=== PATIENT | male | born 1945 | race Caucasian/White ===

== ENCOUNTER 2022-04-26 17:58 | Inpatient (IN) | payer MEDICAID ==
[~2022-04-26] VITALS: Ht 165.1 cm; Wt 55.0 kg
[2022-04-26 18:55] LABS: BASOPHILS % 0.5 % (0.0-2.0); EOSINOPHILS % 3.6 % (0.0-5.0); HEMATOCRIT. 30.7 % (42.0-52.0); HEMOGLOBIN. 9.9 g/dL (14.0-18.0); LYMPHOCYTES % 19.8 % (20.0-50.0); MEAN CORPUSCULAR HEMOGLOBIN 26.8 pg (28.0-32.0); MEAN CORPUSCULAR VOLUME 82.9 fL (80.0-94.0); MONOCYTES % 11.6 % (2.0-8.0); NEUTROPHILS % 64.5 % (40.0-76.0); PLATELET 287 x1000/uL (130-400); RED BLOOD CELL COUNT 3.71 mill/uL (4.7-6.1)
[2022-04-26 19:00] LABS: BG BASE EXCESS 7.3 mmol/L (-2.0-2.0); BG CARBOXYHEMOGLOBIN 0.3 % (0.5-1.5); BG DEOXYHEMOGLOBIN 6.2 % (0.0-5.0); BG FRACTION INSPIRED OXYGEN 28; BG HCO3 ACT 33.3 mmol/L (22.0-26.0); BG METHEMOGLOBIN 0.2 % (0.0-1.5); BG OXYGEN SATURATION 93.8 % (92.0-98.5); BG OXYHEMOGLOBIN 93.3 % (94.0-97.0); BG PCO2 54.3 mmHg (35.0-45.0); BG PH 7.405 (7.350-7.450); BG PO2 71.9 mmHg (75.0-100.0); BG SAMPLE SITE RIGHT RADIAL; BG TOTAL HEMOGLOBIN 10.4 g/dL (12.0-18.0); BG VENT MODE NASAL CANNULA
[2022-04-26 19:07] LABS: CHLORIDE 101 mEq/L (98-107)
[2022-04-26] MEDS ORDERED: ALBUTEROL (0.083%) 2.5MG/3ML NEB HHN STA (20:21)
[2022-04-26] MEDS ORDERED: IPRATROPIUM BROMIDE (0.02%) 0.5MG/2.5ML NEB HHN STA (20:21)
[2022-04-26] MEDS ORDERED: METHYLPREDNISOLONE SOD SUCC 125 MG/2 ML VIAL IV STA (20:21)
[2022-04-26] MEDS ORDERED: LEVOFLOXACIN 750MG PREMIX 150 ML IV NR (21:00)
[2022-04-27] MEDS ORDERED: IPRATROPIUM/ALBUTEROL 0.5-3(2.5)MG/3ML NEB HHN PRN ×2 (00:15→13:45)
[2022-04-27] MEDS ORDERED: ZOLPIDEM TARTRATE 5MG TABLET PO PRN (00:15)
[2022-04-27] MEDS ORDERED: CLONIDINE 0.1MG TABLET PO PRN (00:15)
[2022-04-27] MEDS ORDERED: ONDANSETRON HCL 4MG/2ML INJ IV PRN (00:15)
[2022-04-27] MEDS ORDERED: ACETAMINOPHEN 325MG TABLET PO PRN (00:15)
[2022-04-27] MEDS ORDERED: MAGNESIUM/ALUMINUM HYDROXIDE/SIMETHICONE 30ML UDC PO PRN (00:15)
[2022-04-27] MEDS ORDERED: DIPHENHYDRAMINE 50MG/ML VIAL IV PRN (00:15)
[2022-04-27] MEDS ORDERED: GUAIFENESIN 200MG/10ML SUGAR FREE UDC PO PRN (00:15)
[2022-04-27] MEDS: PRIMIDONE 250 MG TABLET PO SCH ×2 (02:00→20:27)
[2022-04-27] MEDS: CARBAMAZEPINE 200MG TABLET PO SCH ×3 (02:00→20:27)
[2022-04-27] MEDS: ACETAMINOPHEN 325MG TABLET PO PRN ×3 (02:02→20:27)
[2022-04-27 02:42] VITALS: BP 107/55
[2022-04-27] MEDS ORDERED: SPIR50TA5 PO (03:53)
[2022-04-27] MEDS ORDERED: ASPI-986 PO (03:53)
[2022-04-27] MEDS ORDERED: SACU1TAB7 PO (03:53)
[2022-04-27] MEDS ORDERED: PANT20TA17 MT (03:53)
[2022-04-27] MEDS ORDERED: PRIM250T7 PO ×2 (03:53→21:03)
[2022-04-27] MEDS ORDERED: CARB200T6 MT (03:53)
[2022-04-27] MEDS ORDERED: MONT4TAB9 PO (03:53)
[2022-04-27] MEDS ORDERED: CLOP75TA33 PO (03:53)
[2022-04-27] MEDS ORDERED: PRED1TAB MT (03:53)
[2022-04-27] MEDS ORDERED: IPRATROPIUM/ALBUTEROL 0.5-3(2.5)MG/3ML NEB HHN SCH (06:00)
[2022-04-27] MEDS: SODIUM CHLORIDE 0.9% INJ 3ML FLUSH IVF SCH ×3 (06:16→22:49)
[2022-04-27] MEDS: METHYLPREDNISOLONE SOD SUCC 125 MG/2 ML VIAL IV SCH ×3 (06:16→22:49)
[2022-04-27] MEDS: PANTOPRAZOLE 40MG DR TABLET PO SCH ×2 (06:16→20:27)
[2022-04-27 08:00] VITALS: BP 124/44
[2022-04-27] MEDS: ENOXAPARIN 40MG/0.4ML SYR SUBCUT SCH (09:22)
[2022-04-27] MEDS: SPIRONOLACTONE 25MG TABLET PO SCH (09:23)
[2022-04-27] MEDS: CLOPIDOGREL 75MG TABLET PO SCH (09:23)
[2022-04-27] MEDS: ASPIRIN 81MG EC TABLET PO SCH (09:23)
[2022-04-27 12:00] VITALS: BP 122/48
[2022-04-27 16:00] VITALS: BP 118/44
[2022-04-27] MEDS: IPRATROPIUM/ALBUTEROL 0.5-3(2.5)MG/3ML NEB HHN SCH (16:15)
[2022-04-27] MEDS: MONTELUKAST SODIUM 10MG TABLET PO SCH (17:23)
[2022-04-27 20:22] VITALS: BP 105/42
[2022-04-27] MEDS ORDERED: SACU1TAB MT (20:37)
[2022-04-27] MEDS ORDERED: ZAFI10TA2 PO (20:56)
[2022-04-27] MEDS ORDERED: ASPI-864 PO (20:57)
[2022-04-27] MEDS ORDERED: SPIR25TA6 PO (20:57)
[2022-04-27] MEDS ORDERED: PANT40SU PO (20:58)
[2022-04-27] MEDS ORDERED: CLOP-31 PO (20:58)
[2022-04-27] MEDS ORDERED: CARB200T6 PO ×2 (21:02)
[2022-04-27] MEDS ORDERED: ATOR20TA65 PO (22:16)
[2022-04-27] MEDS ORDERED: LIDO700A30 TP (22:16)
[2022-04-27] MEDS ORDERED: SUCR1TAB PO (22:21)
[2022-04-27] MEDS: LEVOFLOXACIN 500MG PREMIX 100 ML IV SCH (22:49)
[2022-04-28] VITALS: BP 126/57
[2022-04-28] MEDS: IPRATROPIUM/ALBUTEROL 0.5-3(2.5)MG/3ML NEB HHN SCH ×5 (01:38→21:26)
[2022-04-28 04:00] VITALS: BP 114/46
[2022-04-28] MEDS: PANTOPRAZOLE 40MG DR TABLET PO SCH ×2 (06:34→21:37)
[2022-04-28] MEDS: SODIUM CHLORIDE 0.9% INJ 3ML FLUSH IVF SCH ×3 (06:34→21:38)
[2022-04-28] MEDS: METHYLPREDNISOLONE SOD SUCC 125 MG/2 ML VIAL IV SCH ×2 (06:34→13:13)
[2022-04-28 08:00] VITALS: BP 117/49
[2022-04-28] MEDS: ASPIRIN 81MG EC TABLET PO SCH (08:41)
[2022-04-28] MEDS: CARBAMAZEPINE 200MG TABLET PO SCH ×2 (08:41→21:37)
[2022-04-28] MEDS: SPIRONOLACTONE 25MG TABLET PO SCH (08:41)
[2022-04-28] MEDS: CLOPIDOGREL 75MG TABLET PO SCH (08:41)
[2022-04-28] MEDS: ENOXAPARIN 40MG/0.4ML SYR SUBCUT SCH (08:42)
[2022-04-28] MEDS: ENTRESTO PO SCH ×2 (08:42→16:52)
[2022-04-28 12:00] VITALS: BP 119/51
[2022-04-28 16:00] VITALS: BP 114/48
[2022-04-28] MEDS: MONTELUKAST SODIUM 10MG TABLET PO SCH (16:51)
[2022-04-28] MEDS: METHYLPREDNISOLONE SOD SUCC 40 MG/ML VIAL IV SCH (16:51)
[2022-04-28 20:00] VITALS: BP 125/47
[2022-04-28] MEDS: BUDESONIDE 0.5MG/2ML NEB HHN SCH (21:26)
[2022-04-28] MEDS: LEVOFLOXACIN 500MG PREMIX 100 ML IV SCH (21:37)
[2022-04-28] MEDS: PRIMIDONE 250 MG TABLET PO SCH (21:37)
[2022-04-29] VITALS: BP 113/56
[2022-04-29] MEDS: IPRATROPIUM/ALBUTEROL 0.5-3(2.5)MG/3ML NEB HHN SCH ×5 (01:10→16:25)
[2022-04-29 04:00] VITALS: BP 111/46
[2022-04-29] MEDS: METHYLPREDNISOLONE SOD SUCC 40 MG/ML VIAL IV SCH (05:24)
[2022-04-29] MEDS: SODIUM CHLORIDE 0.9% INJ 3ML FLUSH IVF SCH ×2 (05:25→14:00)
[2022-04-29 08:00] VITALS: BP 99/48
[2022-04-29] MEDS: BUDESONIDE 0.5MG/2ML NEB HHN SCH (08:40)
[2022-04-29] MEDS: CARBAMAZEPINE 200MG TABLET PO SCH (09:25)
[2022-04-29] MEDS: CLOPIDOGREL 75MG TABLET PO SCH (09:25)
[2022-04-29] MEDS: PANTOPRAZOLE 40MG DR TABLET PO SCH (09:26)
[2022-04-29] MEDS: SPIRONOLACTONE 25MG TABLET PO SCH (09:26)
[2022-04-29] MEDS: ASPIRIN 81MG EC TABLET PO SCH (09:26)
[2022-04-29] MEDS: ENTRESTO PO SCH (09:31)
[2022-04-29] MEDS: ENOXAPARIN 40MG/0.4ML SYR SUBCUT SCH (09:31)
[2022-04-29 12:00] VITALS: BP 92/63
[2022-04-29 14:20] VITALS: BP 92/63
== END 2022-04-29 17:45 | disposition home or self-care (01) | DRG 140 ==
LOC: ER 17:58 → 8WST 20:52 → EDBEDREQ 20:56 → EDBEDREQTM 20:56 → CANRESERV 21:36 → ENRESERV 21:36
PROVIDERS: ADMIT Internal Medicine; ATTEND Internal Medicine
PROC: 5A09357 Assistance with Respiratory Ventilation, Less than 24 Consecutive Hours, Continuous Positive Airway Pressure (ICD-10-PCS; principal; 2022-04-26)
DX: J44.1 Chronic obstructive pulmonary disease with (acute) exacerbation (principal); J96.01 Acute respiratory failure with hypoxia; I50.20 Unspecified systolic (congestive) heart failure; J18.9 Pneumonia, unspecified organism; Z99.81 Dependence on supplemental oxygen; K21.9 Gastro-esophageal reflux disease without esophagitis; G40.909 Epilepsy, unspecified, not intractable, without status epilepticus; I25.10 Atherosclerotic heart disease of native coronary artery without angina pectoris; Z86.15 Personal history of latent tuberculosis infection; Z87.891 Personal history of nicotine dependence; Z79.899 Other long term (current) drug therapy; Z22.7 Latent tuberculosis
CPT/HCPCS: 36415; 36600; 71045; 71275; 80053; 82375; 82805; 83880; 84484; 85025; 85379; 87426; 93005; 93306; 94640; 94660; 99285; C9803; J1650; J1956; J2920; J2930; J7626

== ENCOUNTER 2022-05-14 12:06 | Inpatient (IN) | payer MEDICAID ==
[~2022-05-14] VITALS: Ht 165.1 cm; Wt 55.3 kg
[~2022-05-14 12:06] MED LIST: ASPI-864 PO; ATOR20TA65 PO; CARB200T6 PO; CLOP-31 PO; LIDO700A30 TP; PANT40SU PO; PRIM250T7 PO; SACU1TAB MT; SPIR25TA6 PO; SUCR1TAB PO; ZAFI10TA2 PO
[2022-05-14] MEDS ORDERED: IPRATROPIUM BROMIDE (0.02%) 0.5MG/2.5ML NEB HHN STA (12:09)
[2022-05-14] MEDS ORDERED: METHYLPREDNISOLONE SOD SUCC 125 MG/2 ML VIAL IV STA (12:09)
[2022-05-14] MEDS ORDERED: ALBUTEROL (0.083%) 2.5MG/3ML NEB HHN STA (12:09)
[2022-05-14] MEDS ORDERED: MORPHINE SULFATE 2 MG/ML CPJ (NOT FOR IM USE) IV ONE (12:15)
[2022-05-14 12:46] LABS: BG BASE EXCESS 5.4 mmol/L (-2.0-2.0); BG CARBOXYHEMOGLOBIN 0.3 % (0.5-1.5); BG DEOXYHEMOGLOBIN 3.7 % (0.0-5.0); BG FRACTION INSPIRED OXYGEN 60; BG HCO3 ACT 30.9 mmol/L (22.0-26.0); BG METHEMOGLOBIN 0.1 % (0.0-1.5); BG OXYGEN SATURATION 96.3 % (92.0-98.5); BG OXYHEMOGLOBIN 95.9 % (94.0-97.0); BG PCO2 49.9 mmHg (35.0-45.0); BG PO2 87.5 mmHg (75.0-100.0); BG SAMPLE SITE RIGHT RADIAL; BG TOTAL HEMOGLOBIN 10.4 g/dL (12.0-18.0); BG VENT MODE HHN
[2022-05-14 12:55] LABS: BASOPHILS % 0.7 % (0.0-2.0); EOSINOPHILS % 5.1 % (0.0-5.0); HEMATOCRIT. 29.3 % (42.0-52.0); HEMOGLOBIN. 9.4 g/dL (14.0-18.0); LYMPHOCYTES % 24.8 % (20.0-50.0); MEAN CORPUSCULAR HEMOGLOBIN 26.7 pg (28.0-32.0); MEAN PLATELET VOLUME 8.1 fl (7.4-10.4); NEUTROPHILS % 56.4 % (40.0-76.0); PLATELET 355 x1000/uL (130-400); RED BLOOD CELL COUNT 3.53 mill/uL (4.7-6.1); RED CELL DISTRIBUTION WIDTH 17.4 % (11.6-14.6)
[2022-05-14 13:00] LABS: CHLORIDE 97 mEq/L (98-107)
[2022-05-14 13:12] LABS: ETHANOL BLOOD < 10 mg/dL
[2022-05-14] MEDS ORDERED: ASPIRIN 325MG EC TABLET PO SCH (13:45)
[2022-05-14] MEDS ORDERED: ENOXAPARIN 60MG/0.6ML SYR SUBCUT SCH (13:45)
[2022-05-14] MEDS ORDERED: IPRATROPIUM/ALBUTEROL 0.5-3(2.5)MG/3ML NEB HHN SCH (18:00)
[2022-05-14] MEDS ORDERED: ONDANSETRON HCL 4MG/2ML INJ IV PRN (18:45)
[2022-05-14 20:00] VITALS: BP 105/55
[2022-05-14] MEDS ORDERED: FAMOTIDINE 20MG TABLET PO SCH (21:00)
[2022-05-14] MEDS: METHYLPREDNISOLONE SOD SUCC 40 MG/ML VIAL IV SCH (22:10)
[2022-05-14] MEDS ORDERED: CEFTRIAXONE 1 G PREMIX 50 ML IV SCH (23:30)
[2022-05-15] VITALS (7 sets, daily range): BP systolic 102–119; BP diastolic 45–76
[2022-05-15] MEDS: CEFTRIAXONE 1,000 MG in DEXTROSE 5% WATER 50 ML IV SCH ×2 (01:34→23:22)
[2022-05-15] MEDS: METHYLPREDNISOLONE SOD SUCC 40 MG/ML VIAL IV SCH ×3 (06:43→21:24)
[2022-05-15] MEDS: IPRATROPIUM/ALBUTEROL 0.5-3(2.5)MG/3ML NEB HHN SCH ×4 (08:55→21:02)
[2022-05-15] MEDS ORDERED: SPIRONOLACTONE 25MG TABLET PO SCH (09:00)
[2022-05-15] MEDS ORDERED: IPRATROPIUM/ALBUTEROL 0.5-3(2.5)MG/3ML NEB HHN PRN (09:15)
[2022-05-15] MEDS: CLOPIDOGREL 75MG TABLET PO SCH (09:24)
[2022-05-15] MEDS: ASPIRIN 81MG EC TABLET PO SCH (09:24)
[2022-05-15] MEDS: CARBAMAZEPINE 200MG TABLET PO SCH ×2 (09:24→16:53)
[2022-05-15] MEDS: PANTOPRAZOLE 40MG DR TABLET PO SCH (09:24)
[2022-05-15] MEDS: ENOXAPARIN 40MG/0.4ML SYR SUBCUT SCH (09:25)
[2022-05-15] MEDS: BUDESONIDE 0.5MG/2ML NEB HHN SCH ×2 (11:47→21:02)
[2022-05-15] MEDS: ACETAMINOPHEN 325MG TABLET PO PRN (16:05)
[2022-05-15] MEDS: ATORVASTATIN CALCIUM 20MG TABLET PO SCH (21:25)
[2022-05-15] MEDS: PRIMIDONE 250 MG TABLET PO SCH (21:25)
[2022-05-16] MEDS: IPRATROPIUM/ALBUTEROL 0.5-3(2.5)MG/3ML NEB HHN SCH ×6 (00:28→20:10)
[2022-05-16 04:10] VITALS: BP 103/50
[2022-05-16] MEDS: METHYLPREDNISOLONE SOD SUCC 40 MG/ML VIAL IV SCH ×3 (05:49→22:41)
[2022-05-16 08:00] VITALS: BP 113/54
[2022-05-16] MEDS ORDERED: SPIRONOLACTONE 25MG TABLET PO SCH (09:00)
[2022-05-16] MEDS: BUDESONIDE 0.5MG/2ML NEB HHN SCH ×2 (09:28→20:11)
[2022-05-16] MEDS: CLOPIDOGREL 75MG TABLET PO SCH (10:32)
[2022-05-16] MEDS: PANTOPRAZOLE 40MG DR TABLET PO SCH (10:32)
[2022-05-16] MEDS: ASPIRIN 81MG EC TABLET PO SCH (10:33)
[2022-05-16] MEDS: ENOXAPARIN 40MG/0.4ML SYR SUBCUT SCH (10:35)
[2022-05-16] MEDS: CARBAMAZEPINE 200MG TABLET PO SCH ×2 (10:38→17:13)
[2022-05-16 12:00] VITALS: BP 110/55
[2022-05-16 16:00] VITALS: BP 110/54
[2022-05-16] MEDS: ACETAMINOPHEN 325MG TABLET PO PRN (17:11)
[2022-05-16 18:32] VITALS: BP 121/51
[2022-05-16 20:00] VITALS: BP 116/64
[2022-05-16] MEDS: ATORVASTATIN CALCIUM 20MG TABLET PO SCH (20:34)
[2022-05-16] MEDS: PRIMIDONE 250 MG TABLET PO SCH (20:34)
[2022-05-16] MEDS: FAMOTIDINE 20MG TABLET PO SCH (20:34)
[2022-05-16] MEDS: CEFTRIAXONE 1,000 MG in DEXTROSE 5% WATER 50 ML IV SCH (22:41)
[2022-05-17] VITALS: BP_SYST 115; BP_SYST 155; BP_DIAS 41
[2022-05-17] MEDS: IPRATROPIUM/ALBUTEROL 0.5-3(2.5)MG/3ML NEB HHN SCH ×8 (00:25→23:55)
[2022-05-17 04:00] VITALS: BP 125/63
[2022-05-17] MEDS: METHYLPREDNISOLONE SOD SUCC 40 MG/ML VIAL IV SCH ×3 (05:20→22:20)
[2022-05-17] MEDS: BUDESONIDE 0.5MG/2ML NEB HHN SCH (07:45)
[2022-05-17 08:00] VITALS: BP 116/58
[2022-05-17] MEDS ORDERED: TERBUTALINE SULFATE 1MG/ML VIAL SUBCUT NR (09:15)
[2022-05-17] MEDS: CLOPIDOGREL 75MG TABLET PO SCH (10:11)
[2022-05-17] MEDS: FAMOTIDINE 20MG TABLET PO SCH ×2 (10:11→20:54)
[2022-05-17] MEDS: ASPIRIN 81MG EC TABLET PO SCH (10:12)
[2022-05-17] MEDS: ENOXAPARIN 40MG/0.4ML SYR SUBCUT SCH (10:12)
[2022-05-17] MEDS: CARBAMAZEPINE 200MG TABLET PO SCH ×3 (10:16→19:30)
[2022-05-17 10:48] LABS: CHLORIDE 104 mEq/L (98-107)
[2022-05-17 12:00] VITALS: BP 128/60
[2022-05-17] MEDS: ACETAMINOPHEN 325MG TABLET PO PRN (14:15)
[2022-05-17 16:00] VITALS: BP 118/60
[2022-05-17] MEDS ORDERED: LACTULOSE 20G/30ML UDC PO NR (18:30)
[2022-05-17] MEDS: DOCUSATE SODIUM 250MG CAPSULE PO SCH (19:29)
[2022-05-17 20:00] VITALS: BP 122/66
[2022-05-17] MEDS: PRIMIDONE 250 MG TABLET PO SCH (20:54)
[2022-05-17] MEDS: ATORVASTATIN CALCIUM 20MG TABLET PO SCH (20:54)
[2022-05-17] MEDS: THEOPHYLLINE ANHYDROUS 80 MG/15 ML 120ML PO SCH (20:54)
[2022-05-17] MEDS: CEFTRIAXONE 1,000 MG in DEXTROSE 5% WATER 50 ML IV SCH (20:59)
[2022-05-18] VITALS: BP 157/74
[2022-05-18 04:00] VITALS: BP 121/62
[2022-05-18] MEDS: IPRATROPIUM/ALBUTEROL 0.5-3(2.5)MG/3ML NEB HHN SCH ×3 (04:23→17:26)
[2022-05-18] MEDS: METHYLPREDNISOLONE SOD SUCC 40 MG/ML VIAL IV SCH ×2 (05:54→15:39)
[2022-05-18 08:00] VITALS: BP 112/54
[2022-05-18] MEDS ORDERED: IODIXANOL 320MG/ML 100 ML BOTTLE IV ONE (08:07)
[2022-05-18] MEDS ORDERED: VERAPAMIL HCL 2.5 MG/1 ML 2ML VIAL IV ONE (08:07)
[2022-05-18] MEDS ORDERED: LIDOCAINE HCL/PF 1% 10 MG/ML 5ML VIAL ONE (08:07)
[2022-05-18] MEDS ORDERED: DIPHENHYDRAMINE 50MG/ML VIAL ONE (08:08)
[2022-05-18] MEDS ORDERED: MIDAZOLAM HCL 2 MG/2 ML VIAL ONE (08:08)
[2022-05-18] MEDS ORDERED: FENTANYL CITRATE/PF 50MCG/ML 2ML VIAL ONE (08:08)
[2022-05-18] MEDS ORDERED: HEPARIN 1000 UNITS/ML 10ML ONE (08:11)
[2022-05-18] MEDS ORDERED: ATROPINE SULFATE 1MG/10ML SYR IV PRN (09:30)
[2022-05-18] MEDS ORDERED: NITROGLYCERIN 50MCG/ML 10ML VIAL (CATH LAB) IV ONE (10:00)
[2022-05-18] MEDS ORDERED: NICARDIPINE 100MCG/ML 10ML VIAL (CATH LAB) IV ONE (10:00)
[2022-05-18 12:00] VITALS: BP 198/100
[2022-05-18] MEDS: CLOPIDOGREL 75MG TABLET PO SCH (13:13)
[2022-05-18] MEDS: CARBAMAZEPINE 200MG TABLET PO SCH (13:13)
[2022-05-18] MEDS: THEOPHYLLINE ANHYDROUS 80 MG/15 ML 120ML PO SCH (13:13)
[2022-05-18] MEDS: FAMOTIDINE 20MG TABLET PO SCH (13:13)
[2022-05-18] MEDS: ENOXAPARIN 40MG/0.4ML SYR SUBCUT SCH (13:13)
[2022-05-18] MEDS: ASPIRIN 81MG EC TABLET PO SCH (13:13)
[2022-05-18] MEDS: DOCUSATE SODIUM 250MG CAPSULE PO SCH (13:13)
[2022-05-18] MEDS ORDERED: LACTULOSE 20G/30ML UDC PO SCH (13:15)
[2022-05-18] MEDS ORDERED: NA PHOS,M-B/NA PHOS,DI-BA ENEMA 118ML PR STA (15:22)
[2022-05-18 16:00] VITALS: BP 121/57
[2022-05-18 18:32] VITALS: BP 121/57
== END 2022-05-18 18:00 | disposition home or self-care (01) | DRG 190 ==
LOC: ER 12:06 → EDBEDREQ 13:47 → 6WST 15:19 → EDBEDREQTM 15:37 → EDBEDREQ 15:37 → ENRESERV 17:34
PROVIDERS: ADMIT Internal Medicine; ATTEND Internal Medicine
PROC: 4A023N7 Measurement of Cardiac Sampling and Pressure, Left Heart, Percutaneous Approach (ICD-10-PCS; principal; 2022-05-18)
PROC: B211YZZ Fluoroscopy of Multiple Coronary Arteries using Other Contrast (ICD-10-PCS; 2022-05-18)
DX: I25.10 Atherosclerotic heart disease of native coronary artery without angina pectoris (principal); I21.A1 Myocardial infarction type 2; J96.21 Acute and chronic respiratory failure with hypoxia; E43 Unspecified severe protein-calorie malnutrition; I50.43 Acute on chronic combined systolic (congestive) and diastolic (congestive) heart failure; I11.0 Hypertensive heart disease with heart failure; E87.1 Hypo-osmolality and hyponatremia; J44.1 Chronic obstructive pulmonary disease with (acute) exacerbation; D64.9 Anemia, unspecified; I44.7 Left bundle-branch block, unspecified; E87.8 Other disorders of electrolyte and fluid balance, not elsewhere classified; J98.4 Other disorders of lung; Z20.822 Contact with and (suspected) exposure to COVID-19; Z68.20 Body mass index [BMI] 20.0-20.9, adult; Z99.81 Dependence on supplemental oxygen; Z87.891 Personal history of nicotine dependence; Z86.15 Personal history of latent tuberculosis infection; Z87.11 Personal history of peptic ulcer disease; Z83.3 Family history of diabetes mellitus; Z82.49 Family history of ischemic heart disease and other diseases of the circulatory system
CPT/HCPCS: 36415; 36600; 71045; 80048; 80053; 80320; 82375; 82805; 83605; 83880; 84484; 85025; 87426; 87804; 93005; 93306; 93458; 94640; 99291; C1769; C1887; C1893; C9803; J0696; J1200; J1644; J1650; J2250; J2270; J2405; J2920; J2930; J3010; J3105; J3490; J7060; J7626; Q9967; G0480

== ENCOUNTER 2022-07-21 21:23 | Inpatient (IN) | payer MEDICAID ==
[~2022-07-21] VITALS: Ht 165.1 cm; Wt 59.4 kg
[~2022-07-21 21:23] MED LIST changes: +ALBU18HF2 IH; +FLUT1DIS2 INH; +OLAN2.5T29 PO; +P20 MT; +P20 PO; -PANT40SU PO; +PANT40TA51 MT; +SERT50TA PO
[2022-07-21 22:39] LABS: BG BASE EXCESS 4.7 mmol/L (-2.0-2.0); BG CARBOXYHEMOGLOBIN 0.2 % (0.5-1.5); BG DEOXYHEMOGLOBIN 1.3 % (0.0-5.0); BG HCO3 ACT 30.8 mmol/L (22.0-26.0); BG METHEMOGLOBIN 0.3 % (0.0-1.5); BG OXYGEN SATURATION 98.7 % (92.0-98.5); BG OXYHEMOGLOBIN 98.2 % (94.0-97.0); BG PCO2 54.7 mmHg (35.0-45.0); BG PH 7.369 (7.350-7.450); BG PO2 140.9 mmHg (75.0-100.0)
[2022-07-21] MEDS ORDERED: IPRATROPIUM BROMIDE (0.02%) 0.5MG/2.5ML NEB HHN STA (22:59)
[2022-07-21] MEDS ORDERED: METHYLPREDNISOLONE SOD SUCC 125 MG/2 ML VIAL IV STA (22:59)
[2022-07-21] MEDS ORDERED: SODIUM CHLORIDE 0.9% 1,000 ML IV ONE (23:00)
[2022-07-21 23:18] LABS: BASOPHILS % 0.5 % (0.0-2.0); EOSINOPHILS % 0.7 % (0.0-5.0); HEMATOCRIT. 27.8 % (42.0-52.0); HEMOGLOBIN. 8.6 g/dL (14.0-18.0); MEAN CORPUSCULAR HEMOGLOBIN 24.9 pg (28.0-32.0); MEAN CORPUSCULAR VOLUME 80.5 fL (80.0-94.0); MEAN PLATELET VOLUME 8.1 fl (7.4-10.4); MONOCYTES % 6.6 % (2.0-8.0); NEUTROPHILS % 65.2 % (40.0-76.0); PLATELET 248 x1000/uL (130-400); RED BLOOD CELL COUNT 3.45 mill/uL (4.7-6.1)
[2022-07-21 23:19] LABS: CHLORIDE 106 mEq/L (98-107)
[2022-07-21] MEDS: ALBUTEROL (0.083%) 2.5MG/3ML NEB HHN SCH (23:25)
[2022-07-22] MEDS: ALBUTEROL (0.083%) 2.5MG/3ML NEB HHN SCH (00:22)
[2022-07-22 00:28] LABS: PROTHROMBIN TIME 10.3 sec (9.6-11.0)
[2022-07-22] MEDS ORDERED: AZITHROMYCIN 500MG/250ML 250 ML IV NR (01:30)
[2022-07-22] MEDS ORDERED: CEFTRIAXONE 1 G PREMIX 50 ML IV NR (01:30)
[2022-07-22] MEDS ORDERED: IPRATROPIUM/ALBUTEROL 0.5-3(2.5)MG/3ML NEB HHN PRN (12:45)
[2022-07-22] MEDS ORDERED: MAGNESIUM/ALUMINUM HYDROXIDE/SIMETHICONE 30ML UDC PO PRN (14:30)
[2022-07-22 15:36] VITALS: BP 127/53
[2022-07-22 15:47] VITALS: BP 127/53
[2022-07-22] MEDS: OMEPRAZOLE 20MG CAPSULE EXTENDED RELEASE PO SCH (16:50)
[2022-07-22] MEDS: IPRATROPIUM/ALBUTEROL 0.5-3(2.5)MG/3ML NEB HHN SCH (20:20)
[2022-07-22 20:27] VITALS: BP 134/71
[2022-07-22] MEDS ORDERED: DIPHENHYDRAMINE 50MG CAPSULE PO PRN (22:15)
[2022-07-23 00:20] VITALS: BP 115/60
[2022-07-23] MEDS: BUDESONIDE 0.5MG/2ML NEB HHN SCH ×2 (01:23→08:00)
[2022-07-23] MEDS: IPRATROPIUM/ALBUTEROL 0.5-3(2.5)MG/3ML NEB HHN SCH ×3 (01:23→13:51)
[2022-07-23 04:00] VITALS: BP 117/53
[2022-07-23] MEDS: OMEPRAZOLE 20MG CAPSULE EXTENDED RELEASE PO SCH (07:22)
[2022-07-23 08:50] VITALS: BP 136/56
[2022-07-23 12:00] VITALS: BP 110/53
[2022-07-23 12:34] LABS: BG BASE EXCESS 6.1 mmol/L (-2.0-2.0); BG CARBOXYHEMOGLOBIN 0.1 % (0.5-1.5); BG DEOXYHEMOGLOBIN 2.1 % (0.0-5.0); BG FRACTION INSPIRED OXYGEN 32; BG HCO3 ACT 31.9 mmol/L (22.0-26.0); BG METHEMOGLOBIN 0.3 % (0.0-1.5); BG OXYGEN SATURATION 97.9 % (92.0-98.5); BG OXYHEMOGLOBIN 97.5 % (94.0-97.0); BG PCO2 54.1 mmHg (35.0-45.0); BG PH 7.389 (7.350-7.450); BG PO2 107.6 mmHg (75.0-100.0); BG SAMPLE SITE RIGHT BRACHIAL; BG TOTAL HEMOGLOBIN 8.1 g/dL (12.0-18.0); BG VENT MODE NASAL CANNULA
[2022-07-23 16:00] VITALS: BP 140/56
[2022-07-23 16:17] VITALS: BP 110/53
== END 2022-07-23 18:15 | disposition home or self-care (01) | DRG 140 ==
LOC: ER 21:40 → 8WST 07-22 01:20 → EDBEDREQTM 07-22 09:18 → EDBEDREQ 07-22 09:18 → ENRESERV 07-22 14:07
PROVIDERS: ADMIT Internal Medicine; ATTEND Internal Medicine
DX: J44.1 Chronic obstructive pulmonary disease with (acute) exacerbation (principal); J96.21 Acute and chronic respiratory failure with hypoxia; E44.0 Moderate protein-calorie malnutrition; E87.20 Acidosis, unspecified; Z20.822 Contact with and (suspected) exposure to COVID-19; K21.9 Gastro-esophageal reflux disease without esophagitis; I10 Essential (primary) hypertension; G40.909 Epilepsy, unspecified, not intractable, without status epilepticus; R79.89 Other specified abnormal findings of blood chemistry; Z79.899 Other long term (current) drug therapy; Z68.21 Body mass index [BMI] 21.0-21.9, adult; Z83.3 Family history of diabetes mellitus; Z82.49 Family history of ischemic heart disease and other diseases of the circulatory system
CPT/HCPCS: 36415; 36600; 71045; 80053; 82375; 82805; 82962; 83605; 83880; 84484; 85025; 86850; 86900; 87426; 93005; 99291; J0456; J0696; J2930; J7030; J7626; Q0163

== ENCOUNTER 2022-08-11 05:13 | Inpatient (IN) | payer MEDICAID ==
[~2022-08-11] VITALS: Ht 162.6 cm; Wt 40.8 kg
[~2022-08-11 05:13] MED LIST changes: -ASPI-864 PO
[2022-08-11 08:07] LABS: BASOPHILS % 1.1 % (0.0-2.0); EOSINOPHILS % 3.1 % (0.0-5.0); HEMATOCRIT. 26.3 % (42.0-52.0); HEMOGLOBIN. 8.2 g/dL (14.0-18.0); LYMPHOCYTES % 21.6 % (20.0-50.0); MEAN CORPUSCULAR HEMOGLOBIN 24.1 pg (28.0-32.0); MEAN CORPUSCULAR VOLUME 77.2 fL (80.0-94.0); MEAN PLATELET VOLUME 7.7 fl (7.4-10.4); MONOCYTES % 8.8 % (2.0-8.0); NEUTROPHILS % 65.4 % (40.0-76.0); PLATELET 269 x1000/uL (130-400); RED BLOOD CELL COUNT 3.41 mill/uL (4.7-6.1); RED CELL DISTRIBUTION WIDTH 17.5 % (11.6-14.6)
[2022-08-11 08:11] LABS: CHLORIDE 102 mEq/L (98-107)
[2022-08-11] MEDS ORDERED: ALBUTEROL (0.083%) 2.5MG/3ML NEB HHN STA (08:35)
[2022-08-11] MEDS ORDERED: MAGNESIUM 2 G PREMIX 50 ML IV STA (08:35)
[2022-08-11] MEDS ORDERED: METHYLPREDNISOLONE SOD SUCC 125 MG/2 ML VIAL IV STA (08:35)
[2022-08-11] MEDS ORDERED: IPRATROPIUM BROMIDE (0.02%) 0.5MG/2.5ML NEB HHN STA (08:35)
[2022-08-11] MEDS ORDERED: IPRATROPIUM BROMIDE (0.02%) 0.5MG/2.5ML NEB HHN NR (10:15)
[2022-08-11] MEDS ORDERED: ALBUTEROL (0.083%) 2.5MG/3ML NEB HHN NR (10:15)
[2022-08-11 13:13] VITALS: BP 124/51
[2022-08-11 16:00] VITALS: BP 107/59
[2022-08-11] MEDS ORDERED: ONDANSETRON HCL 4MG/2ML INJ IV PRN (16:00)
[2022-08-11 16:06] VITALS: BP 124/51
[2022-08-11] MEDS: IPRATROPIUM/ALBUTEROL 0.5-3(2.5)MG/3ML NEB HHN SCH ×2 (18:00→20:43)
[2022-08-11] MEDS: ACETAMINOPHEN 325MG TABLET PO PRN (19:20)
[2022-08-11 20:00] VITALS: BP 120/39
[2022-08-11] MEDS: CARBAMAZEPINE 200MG TABLET PO SCH (21:33)
[2022-08-12] VITALS: BP 100/44
[2022-08-12] MEDS: IPRATROPIUM/ALBUTEROL 0.5-3(2.5)MG/3ML NEB HHN SCH ×5 (00:29→17:20)
[2022-08-12 04:00] VITALS: BP 110/42
[2022-08-12 08:00] VITALS: BP 123/56
[2022-08-12] MEDS ORDERED: FAMOTIDINE 20MG/2ML VIAL IV SCH (09:00)
[2022-08-12] MEDS ORDERED: METHYLPREDNISOLONE SOD SUCC 40 MG/ML VIAL IV NR (09:15)
[2022-08-12 12:00] VITALS: BP 124/57
[2022-08-12 16:00] VITALS: BP 126/61
[2022-08-12] MEDS ORDERED: PREDNISONE 20MG TABLET PO SCH ×2 (17:00→17:40)
[2022-08-12] MEDS ORDERED: CARBAMAZEPINE 200MG TABLET PO SCH (18:00)
[2022-08-12] MEDS: ACETAMINOPHEN 325MG TABLET PO PRN (18:49)
[2022-08-12 20:00] VITALS: BP 115/50
[2022-08-12] MEDS: GUAIFENESIN 600MG ER TABLET PO SCH (20:46)
[2022-08-12] MEDS: SPIRONOLACTONE 25MG TABLET PO SCH (20:46)
[2022-08-12] MEDS: CARBAMAZEPINE 200MG TABLET PO SCH (20:47)
[2022-08-12] MEDS ORDERED: PRIMIDONE 250 MG TABLET PO SCH (21:00)
[2022-08-12] MEDS ORDERED: ATORVASTATIN CALCIUM 20MG TABLET PO SCH (21:00)
[2022-08-13] VITALS: BP 111/38
[2022-08-13] MEDS ORDERED: BUDESONIDE 0.5MG/2ML NEB HHN SCH (00:15)
[2022-08-13] MEDS: IPRATROPIUM/ALBUTEROL 0.5-3(2.5)MG/3ML NEB HHN SCH ×4 (02:04→13:20)
[2022-08-13 04:00] VITALS: BP 94/33
[2022-08-13] MEDS ORDERED: PANTOPRAZOLE 40MG DR TABLET PO SCH (07:10)
[2022-08-13 08:00] VITALS: BP 126/53
[2022-08-13] MEDS ORDERED: PREDNISONE 20MG TABLET PO SCH (09:00)
[2022-08-13] MEDS ORDERED: FAMOTIDINE 20MG TABLET PO SCH (09:00)
[2022-08-13] MEDS ORDERED: CLOPIDOGREL 75MG TABLET PO SCH (09:00)
[2022-08-13] MEDS ORDERED: OLANZAPINE 2.5MG TABLET PO SCH (09:00)
[2022-08-13] MEDS ORDERED: SERTRALINE HCL 50MG TABLET PO SCH (09:00)
[2022-08-13] MEDS ORDERED: LIDOCAINE 5% PATCH TOP SCH (10:34)
[2022-08-13] MEDS: GUAIFENESIN 600MG ER TABLET PO SCH (10:41)
[2022-08-13] MEDS: SPIRONOLACTONE 25MG TABLET PO SCH (10:41)
[2022-08-13 12:00] VITALS: BP 124/60
[2022-08-13 12:11] VITALS: BP 123/53
== END 2022-08-13 16:45 | disposition home or self-care (01) | DRG 133 ==
LOC: ER 05:22 → 8WST 10:40 → EDBEDREQ 10:45 → EDBEDREQTM 10:45 → ENRESERV 11:04
PROVIDERS: ADMIT Internal Medicine; ATTEND Internal Medicine
DX: J96.21 Acute and chronic respiratory failure with hypoxia (principal); E44.1 Mild protein-calorie malnutrition; Z99.81 Dependence on supplemental oxygen; J43.9 Emphysema, unspecified; D64.9 Anemia, unspecified; Z20.822 Contact with and (suspected) exposure to COVID-19; G40.909 Epilepsy, unspecified, not intractable, without status epilepticus; I10 Essential (primary) hypertension; K21.9 Gastro-esophageal reflux disease without esophagitis; Z68.1 Body mass index [BMI] 19.9 or less, adult; Z82.49 Family history of ischemic heart disease and other diseases of the circulatory system; Z83.3 Family history of diabetes mellitus
CPT/HCPCS: 36415; 71045; 80053; 83880; 84484; 85025; 87426; 93005; 94640; 94644; 97162; 97166; 99285; J2405; J2920; J2930; J3475; J3490; J7626

== ENCOUNTER 2022-08-18 20:03 | Inpatient (IN) | payer MEDICAID ==
[~2022-08-18] VITALS: Ht 160 cm; Wt 47.4 kg
[2022-08-18] MEDS ORDERED: METHYLPREDNISOLONE SOD SUCC 125 MG/2 ML VIAL IV STA (20:16)
[2022-08-18] MEDS ORDERED: ALBUTEROL (0.083%) 2.5MG/3ML NEB HHN STA (20:16)
[2022-08-18] MEDS ORDERED: IPRATROPIUM BROMIDE (0.02%) 0.5MG/2.5ML NEB HHN STA (20:16)
[2022-08-18] MEDS ORDERED: LEVOFLOXACIN 750MG PREMIX 150 ML IV ONE (20:30)
[2022-08-18 21:03] LABS: BASOPHILS % 0.6 % (0.0-2.0); HEMATOCRIT. 27.4 % (42.0-52.0); HEMOGLOBIN. 8.5 g/dL (14.0-18.0); LYMPHOCYTES % 21.1 % (20.0-50.0); MEAN CORPUSCULAR HEMOGLOBIN 23.9 pg (28.0-32.0); MEAN CORPUSCULAR VOLUME 77.3 fL (80.0-94.0); MEAN PLATELET VOLUME 7.6 fl (7.4-10.4); MONOCYTES % 7.5 % (2.0-8.0); NEUTROPHILS % 69.8 % (40.0-76.0); PLATELET 314 x1000/uL (130-400); RED BLOOD CELL COUNT 3.55 mill/uL (4.7-6.1); RED CELL DISTRIBUTION WIDTH 18.1 % (11.6-14.6)
[2022-08-18 21:10] LABS: CHLORIDE 103 mEq/L (98-107)
[2022-08-18 21:28] LABS: BG BASE EXCESS 0.1 mmol/L (-2.0-2.0); BG CARBOXYHEMOGLOBIN 0.5 % (0.5-1.5); BG DEOXYHEMOGLOBIN 0.3 % (0.0-5.0); BG FRACTION INSPIRED OXYGEN 60; BG HCO3 ACT 26.4 mmol/L (22.0-26.0); BG METHEMOGLOBIN 0.4 % (0.0-1.5); BG OXYGEN SATURATION 99.7 % (92.0-98.5); BG OXYHEMOGLOBIN 98.8 % (94.0-97.0); BG PCO2 51.5 mmHg (35.0-45.0); BG PH 7.327 (7.350-7.450); BG SAMPLE SITE RIGHT BRACHIAL; BG TOTAL HEMOGLOBIN 8.7 g/dL (12.0-18.0); BG VENT MODE MASK - BIPAP
[2022-08-19] VITALS (10 sets, daily range): BP systolic 87–147; BP diastolic 33–75
[2022-08-19] MEDS ORDERED: ONDANSETRON HCL 4MG/2ML INJ IV PRN (10:00)
[2022-08-19] MEDS: SUCRALFATE 1 G/10 ML UDC PO SCH ×3 (13:24→21:04)
[2022-08-19] MEDS: OMEPRAZOLE 20MG CAPSULE EXTENDED RELEASE PO SCH (13:24)
[2022-08-19] MEDS: METHYLPREDNISOLONE SOD SUCC 40 MG/ML VIAL IV SCH ×2 (13:25→18:13)
[2022-08-19] MEDS: IPRATROPIUM/ALBUTEROL 0.5-3(2.5)MG/3ML NEB HHN SCH ×2 (14:50→20:14)
[2022-08-19] MEDS ORDERED: IPRATROPIUM/ALBUTEROL 0.5-3(2.5)MG/3ML NEB HHN PRN (15:00)
[2022-08-19] MEDS: CARBAMAZEPINE 200MG TABLET PO SCH (18:13)
[2022-08-19] MEDS: PRIMIDONE 250 MG TABLET PO SCH (21:04)
[2022-08-20] VITALS (14 sets, daily range): BP systolic 98–136; BP diastolic 44–65
[2022-08-20] MEDS: IPRATROPIUM/ALBUTEROL 0.5-3(2.5)MG/3ML NEB HHN SCH ×6 (00:37→21:40)
[2022-08-20] MEDS: METHYLPREDNISOLONE SOD SUCC 40 MG/ML VIAL IV SCH ×3 (03:20→17:33)
[2022-08-20 06:26] LABS: BASOPHILS % 0.3 % (0.0-2.0); EOSINOPHILS % 0.1 % (0.0-5.0); LYMPHOCYTES % 23.3 % (20.0-50.0); MEAN CORPUSCULAR HEMOGLOBIN 24.2 pg (28.0-32.0); MEAN CORPUSCULAR VOLUME 75.8 fL (80.0-94.0); MEAN PLATELET VOLUME 7.9 fl (7.4-10.4); MONOCYTES % 10.4 % (2.0-8.0); NEUTROPHILS % 65.9 % (40.0-76.0); PLATELET 284 x1000/uL (130-400); RED CELL DISTRIBUTION WIDTH 18.1 % (11.6-14.6)
[2022-08-20 06:39] LABS: CHLORIDE 102 mEq/L (98-107)
[2022-08-20 08:17] LABS: BG BASE EXCESS 6.4 mmol/L (-2.0-2.0); BG CARBOXYHEMOGLOBIN 0.3 % (0.5-1.5); BG DEOXYHEMOGLOBIN 2.8 % (0.0-5.0); BG HCO3 ACT 32.2 mmol/L (22.0-26.0); BG METHEMOGLOBIN 0.3 % (0.0-1.5); BG OXYGEN SATURATION 97.2 % (92.0-98.5); BG OXYHEMOGLOBIN 96.6 % (94.0-97.0); BG PCO2 53.3 mmHg (35.0-45.0); BG PH 7.399 (7.350-7.450); BG PO2 93.4 mmHg (75.0-100.0); BG SAMPLE SITE RIGHT BRACHIAL; BG TOTAL HEMOGLOBIN 9.1 g/dL (12.0-18.0); BG VENT MODE NASAL CANNULA
[2022-08-20] MEDS: OMEPRAZOLE 20MG CAPSULE EXTENDED RELEASE PO SCH (08:51)
[2022-08-20] MEDS: SUCRALFATE 1 G/10 ML UDC PO SCH ×4 (08:51→20:27)
[2022-08-20 13:48] LABS: BG BASE EXCESS 7.3 mmol/L (-2.0-2.0); BG CARBOXYHEMOGLOBIN 0.4 % (0.5-1.5); BG DEOXYHEMOGLOBIN 0.8 % (0.0-5.0); BG FRACTION INSPIRED OXYGEN 40; BG METHEMOGLOBIN 0.5 % (0.0-1.5); BG OXYGEN SATURATION 99.2 % (92.0-98.5); BG OXYHEMOGLOBIN 98.3 % (94.0-97.0); BG PCO2 53.9 mmHg (35.0-45.0); BG PH 7.405 (7.350-7.450); BG PO2 181.5 mmHg (75.0-100.0); BG SAMPLE SITE LEFT RADIAL; BG TOTAL HEMOGLOBIN 8.5 g/dL (12.0-18.0); BG TOTAL RESPIRATORY RATE 22 b/min; BG VENT MODE MASK - BIPAP
[2022-08-20] MEDS ORDERED: HYDROCODONE/ACETAMINOPHEN 5/325MG TABLET PO PRN (14:45)
[2022-08-20] MEDS ORDERED: NALOXONE HCL 0.4MG/ML VIAL IV PRN (16:00)
[2022-08-20] MEDS: CARBAMAZEPINE 200MG TABLET PO SCH (17:39)
[2022-08-20] MEDS: PRIMIDONE 250 MG TABLET PO SCH (20:27)
[2022-08-21] VITALS (7 sets, daily range): BP systolic 119–143; BP diastolic 58–95
[2022-08-21] MEDS: IPRATROPIUM/ALBUTEROL 0.5-3(2.5)MG/3ML NEB HHN SCH ×6 (01:05→21:08)
[2022-08-21] MEDS: METHYLPREDNISOLONE SOD SUCC 40 MG/ML VIAL IV SCH ×3 (01:32→17:46)
[2022-08-21 07:28] LABS: BASOPHILS % 0.3 % (0.0-2.0); EOSINOPHILS % 0.1 % (0.0-5.0); HEMOGLOBIN. 8.7 g/dL (14.0-18.0); LYMPHOCYTES % 13.5 % (20.0-50.0); MEAN CORPUSCULAR VOLUME 77.3 fL (80.0-94.0); MEAN PLATELET VOLUME 7.5 fl (7.4-10.4); MONOCYTES % 6.7 % (2.0-8.0); NEUTROPHILS % 79.4 % (40.0-76.0); PLATELET 311 x1000/uL (130-400); RED CELL DISTRIBUTION WIDTH 17.9 % (11.6-14.6)
[2022-08-21 07:58] LABS: CHLORIDE 100 mEq/L (98-107)
[2022-08-21] MEDS: SUCRALFATE 1 G/10 ML UDC PO SCH ×4 (10:03→21:09)
[2022-08-21] MEDS: OMEPRAZOLE 20MG CAPSULE EXTENDED RELEASE PO SCH (10:04)
[2022-08-21] MEDS: CARBAMAZEPINE 200MG TABLET PO SCH (17:46)
[2022-08-21] MEDS: PRIMIDONE 250 MG TABLET PO SCH (21:10)
[2022-08-22] VITALS: BP 126/63
[2022-08-22] MEDS: IPRATROPIUM/ALBUTEROL 0.5-3(2.5)MG/3ML NEB HHN SCH ×6 (00:30→20:39)
[2022-08-22] MEDS: METHYLPREDNISOLONE SOD SUCC 40 MG/ML VIAL IV SCH ×3 (02:13→17:12)
[2022-08-22 04:00] VITALS: BP 128/59
[2022-08-22 08:00] VITALS: BP 134/63
[2022-08-22] MEDS: OMEPRAZOLE 20MG CAPSULE EXTENDED RELEASE PO SCH (08:19)
[2022-08-22] MEDS: SUCRALFATE 1 G/10 ML UDC PO SCH ×4 (08:19→21:20)
[2022-08-22 12:00] VITALS: BP 134/63
[2022-08-22 16:00] VITALS: BP 122/63
[2022-08-22] MEDS: CARBAMAZEPINE 200MG TABLET PO SCH (17:12)
[2022-08-22 20:00] VITALS: BP 101/56
[2022-08-22] MEDS: PRIMIDONE 250 MG TABLET PO SCH (21:20)
[2022-08-23] VITALS: BP 134/64
[2022-08-23] MEDS: IPRATROPIUM/ALBUTEROL 0.5-3(2.5)MG/3ML NEB HHN SCH ×5 (01:06→16:10)
[2022-08-23] MEDS: METHYLPREDNISOLONE SOD SUCC 40 MG/ML VIAL IV SCH ×3 (03:24→17:16)
[2022-08-23 04:00] VITALS: BP 137/62
[2022-08-23 08:00] VITALS: BP 118/62
[2022-08-23] MEDS: SUCRALFATE 1 G/10 ML UDC PO SCH ×3 (10:00→17:16)
[2022-08-23] MEDS: OMEPRAZOLE 20MG CAPSULE EXTENDED RELEASE PO SCH (10:00)
[2022-08-23 12:00] VITALS: BP 122/63
[2022-08-23 16:00] VITALS: BP 118/63
[2022-08-23] MEDS: CARBAMAZEPINE 200MG TABLET PO SCH (17:16)
== END 2022-08-23 18:29 | disposition home or self-care (01) | DRG 140 ==
LOC: ER 20:03 → 5EST 23:47
PROVIDERS: ADMIT Internal Medicine; ATTEND Internal Medicine
PROC: 5A09357 Assistance with Respiratory Ventilation, Less than 24 Consecutive Hours, Continuous Positive Airway Pressure (ICD-10-PCS; principal; 2022-08-18)
PROC: 5A09357 Assistance with Respiratory Ventilation, Less than 24 Consecutive Hours, Continuous Positive Airway Pressure (ICD-10-PCS; 2022-08-20)
PROC: 5A09357 Assistance with Respiratory Ventilation, Less than 24 Consecutive Hours, Continuous Positive Airway Pressure (ICD-10-PCS; 2022-08-21)
PROC: 5A09357 Assistance with Respiratory Ventilation, Less than 24 Consecutive Hours, Continuous Positive Airway Pressure (ICD-10-PCS; 2022-08-22)
PROC: 5A09357 Assistance with Respiratory Ventilation, Less than 24 Consecutive Hours, Continuous Positive Airway Pressure (ICD-10-PCS; 2022-08-22)
PROC: 5A09357 Assistance with Respiratory Ventilation, Less than 24 Consecutive Hours, Continuous Positive Airway Pressure (ICD-10-PCS; 2022-08-23)
PROC: 5A09357 Assistance with Respiratory Ventilation, Less than 24 Consecutive Hours, Continuous Positive Airway Pressure (ICD-10-PCS; 2022-08-23)
DX: J44.1 Chronic obstructive pulmonary disease with (acute) exacerbation (principal); J96.21 Acute and chronic respiratory failure with hypoxia; E44.1 Mild protein-calorie malnutrition; I50.20 Unspecified systolic (congestive) heart failure; I11.0 Hypertensive heart disease with heart failure; Z99.81 Dependence on supplemental oxygen; Z20.822 Contact with and (suspected) exposure to COVID-19; D64.9 Anemia, unspecified; G40.909 Epilepsy, unspecified, not intractable, without status epilepticus; K29.70 Gastritis, unspecified, without bleeding; K21.9 Gastro-esophageal reflux disease without esophagitis; Z87.891 Personal history of nicotine dependence; Z83.3 Family history of diabetes mellitus; Z82.49 Family history of ischemic heart disease and other diseases of the circulatory system
CPT/HCPCS: 36415; 36600; 71045; 80048; 80053; 82375; 82805; 83880; 85025; 86850; 86900; 86920; 87426; 87804; 93005; 94640; 94644; 94660; 99291; C9803; J1956; J2920; J2930; P9016

== ENCOUNTER 2022-10-22 17:08 | Inpatient (IN) | payer MEDICAID ==
[~2022-10-22] VITALS: Ht 175.3 cm; Wt 47.6 kg
[~2022-10-22 17:08] MED LIST changes: -OLAN2.5T29 PO; -P20 MT; -P20 PO
[2022-10-22] MEDS ORDERED: IPRATROPIUM BROMIDE (0.02%) 0.5MG/2.5ML NEB HHN STA (17:18)
[2022-10-22] MEDS ORDERED: METHYLPREDNISOLONE SOD SUCC 125 MG/2 ML VIAL IV STA (17:18)
[2022-10-22] MEDS ORDERED: MAGNESIUM 2 G PREMIX 50 ML IV ONE (17:30)
[2022-10-22] MEDS: ALBUTEROL (0.083%) 2.5MG/3ML NEB HHN SCH ×2 (18:02→18:03)
[2022-10-22 18:12] LABS: BASOPHILS % 0.9 % (0.0-2.0); EOSINOPHILS % 5.3 % (0.0-5.0); HEMATOCRIT. 27.1 % (42.0-52.0); HEMOGLOBIN. 8.5 g/dL (14.0-18.0); MEAN CORPUSCULAR HEMOGLOBIN 24.5 pg (28.0-32.0); MEAN PLATELET VOLUME 7.9 fl (7.4-10.4); MONOCYTES % 8.4 % (2.0-8.0); NEUTROPHILS % 58.4 % (40.0-76.0); PLATELET 359 x1000/uL (130-400); RED BLOOD CELL COUNT 3.47 mill/uL (4.7-6.1); RED CELL DISTRIBUTION WIDTH 19.1 % (11.6-14.6)
[2022-10-22 18:47] LABS: CHLORIDE 102 mEq/L (98-107)
[2022-10-22] MEDS: SODIUM CHLORIDE 0.9% 1,000 ML IV NR ×2 (19:30→20:30)
[2022-10-23] MEDS: CARBAMAZEPINE 200MG TABLET PO SCH ×2 (09:40→21:40)
[2022-10-23] MEDS ORDERED: IPRATROPIUM/ALBUTEROL 0.5-3(2.5)MG/3ML NEB HHN PRN (11:00)
[2022-10-23] MEDS ORDERED: ONDANSETRON HCL 4MG/2ML INJ IV PRN (11:00)
[2022-10-23] MEDS: OMEPRAZOLE 20MG CAPSULE EXTENDED RELEASE PO SCH (11:21)
[2022-10-23] MEDS: METHYLPREDNISOLONE SOD SUCC 40 MG/ML VIAL IV SCH ×2 (11:21→19:16)
[2022-10-23] MEDS ORDERED: IPRATROPIUM/ALBUTEROL 0.5-3(2.5)MG/3ML NEB HHN SCH ×2 (12:00)
[2022-10-23 15:00] VITALS: BP 142/53
[2022-10-23 16:30] VITALS: BP 144/55
[2022-10-23] MEDS ORDERED: ALBU2.5V13 NEB (16:33)
[2022-10-23] MEDS: ALBUTEROL (0.083%) 2.5MG/3ML NEB HHN SCH ×2 (17:13→21:05)
[2022-10-23] MEDS: IPRATROPIUM BROMIDE (0.02%) 0.5MG/2.5ML NEB HHN SCH ×2 (17:14→21:05)
[2022-10-23] MEDS ORDERED: IPRATROPIUM BROMIDE (0.02%) 0.5MG/2.5ML NEB HHN PRN (17:15)
[2022-10-23] MEDS ORDERED: ALBUTEROL (0.083%) 2.5MG/3ML NEB HHN PRN (17:15)
[2022-10-23] MEDS: HYDROCODONE/ACETAMINOPHEN 5/325MG TABLET PO PRN (18:10)
[2022-10-23] MEDS: PRIMIDONE 250 MG TABLET PO SCH (22:04)
[2022-10-24] MEDS: ALBUTEROL (0.083%) 2.5MG/3ML NEB HHN SCH ×6 (01:57→21:35)
[2022-10-24] MEDS: IPRATROPIUM BROMIDE (0.02%) 0.5MG/2.5ML NEB HHN SCH ×6 (01:58→21:35)
[2022-10-24] MEDS: METHYLPREDNISOLONE SOD SUCC 40 MG/ML VIAL IV SCH ×3 (03:00→18:16)
[2022-10-24] MEDS: OMEPRAZOLE 20MG CAPSULE EXTENDED RELEASE PO SCH (07:26)
[2022-10-24 08:00] VITALS: BP 114/47
[2022-10-24] MEDS: CARBAMAZEPINE 200MG TABLET PO SCH ×2 (09:18→20:31)
[2022-10-24 12:00] VITALS: BP 91/40
[2022-10-24 16:06] VITALS: BP 105/51
[2022-10-24] MEDS: ENOXAPARIN 30MG/0.3ML SYR SUBCUT SCH (16:16)
[2022-10-24 17:17] LABS: CHLORIDE 98 mEq/L (98-107)
[2022-10-24 17:30] LABS: HEMATOCRIT. 26.8 % (42.0-52.0); HEMOGLOBIN. 8.3 g/dL (14.0-18.0); MEAN CORPUSCULAR HEMOGLOBIN 24.6 pg (28.0-32.0); MEAN CORPUSCULAR VOLUME 78.8 fL (80.0-94.0); MEAN PLATELET VOLUME 8.1 fl (7.4-10.4); PLATELET 333 x1000/uL (130-400); RED CELL DISTRIBUTION WIDTH 19.4 % (11.6-14.6)
[2022-10-24 20:30] VITALS: BP 123/49
[2022-10-24] MEDS: PRIMIDONE 250 MG TABLET PO SCH (20:31)
[2022-10-24] MEDS: HYDROCODONE/ACETAMINOPHEN 5/325MG TABLET PO PRN (20:32)
[2022-10-24 22:47] LABS: PLATELET ESTIMATE NORMAL
[2022-10-25 00:19] VITALS: BP 106/43
[2022-10-25] MEDS: ALBUTEROL (0.083%) 2.5MG/3ML NEB HHN SCH ×4 (01:40→14:05)
[2022-10-25] MEDS: IPRATROPIUM BROMIDE (0.02%) 0.5MG/2.5ML NEB HHN SCH ×4 (01:41→14:05)
[2022-10-25] MEDS: METHYLPREDNISOLONE SOD SUCC 40 MG/ML VIAL IV SCH ×2 (03:48→11:15)
[2022-10-25 04:32] VITALS: BP 110/47
[2022-10-25] MEDS: OMEPRAZOLE 20MG CAPSULE EXTENDED RELEASE PO SCH (05:33)
[2022-10-25 05:58] LABS: HEMATOCRIT. 26.3 % (42.0-52.0); HEMOGLOBIN. 8.2 g/dL (14.0-18.0); MEAN CORPUSCULAR HEMOGLOBIN 24.4 pg (28.0-32.0); MEAN CORPUSCULAR VOLUME 78.8 fL (80.0-94.0); MEAN PLATELET VOLUME 8.1 fl (7.4-10.4); PLATELET 304 x1000/uL (130-400); RED BLOOD CELL COUNT 3.34 mill/uL (4.7-6.1); RED CELL DISTRIBUTION WIDTH 19.6 % (11.6-14.6)
[2022-10-25 08:00] VITALS: BP 105/44
[2022-10-25 08:01] LABS: CHLORIDE 102 mEq/L (98-107)
[2022-10-25] MEDS: CARBAMAZEPINE 200MG TABLET PO SCH (09:00)
[2022-10-25 12:00] VITALS: BP 98/51
[2022-10-25] MEDS ORDERED: HYDR-4001 PO (12:55)
[2022-10-25] MEDS ORDERED: OLAN5TAB74 MT (12:59)
[2022-10-25 13:45] VITALS: BP 103/55
[2022-10-25] MEDS: ENOXAPARIN 30MG/0.3ML SYR SUBCUT SCH (16:08)
[2022-10-25 19:43] LABS: PLATELET ESTIMATE NORMAL
[2022-10-26] MEDS ORDERED: METHYLPREDNISOLONE SOD SUCC 40 MG/ML VIAL IV SCH (09:00)
== END 2022-10-25 17:00 | disposition home or self-care (01) | DRG 140 ==
LOC: ER 17:08 → MICUSO 19:59 → EDBEDREQ 20:03 → EDBEDREQTM 20:03 → 7EST 10-23 14:48
PROVIDERS: ADMIT Internal Medicine; ATTEND Internal Medicine
DX: J44.1 Chronic obstructive pulmonary disease with (acute) exacerbation (principal); J96.21 Acute and chronic respiratory failure with hypoxia; I50.20 Unspecified systolic (congestive) heart failure; I11.0 Hypertensive heart disease with heart failure; Z99.81 Dependence on supplemental oxygen; G40.909 Epilepsy, unspecified, not intractable, without status epilepticus; K29.70 Gastritis, unspecified, without bleeding; D64.9 Anemia, unspecified; K21.9 Gastro-esophageal reflux disease without esophagitis; Z22.7 Latent tuberculosis; Z86.15 Personal history of latent tuberculosis infection; Z87.891 Personal history of nicotine dependence; Z83.3 Family history of diabetes mellitus; Z82.49 Family history of ischemic heart disease and other diseases of the circulatory system; Z79.899 Other long term (current) drug therapy
CPT/HCPCS: 36415; 71045; 80048; 80053; 83880; 84484; 85025; 94640; 97166; 99285; J1650; J2920; J2930; J3475

== ENCOUNTER 2022-12-06 19:36 | Inpatient (IN) | payer MEDICAID ==
[~2022-12-06] VITALS: Ht 172.7 cm; Wt 49.0 kg
[~2022-12-06 19:36] MED LIST changes: +ALBU2.5V13 NEB; +HYDR-4001 PO; +OLAN5TAB74 MT
[2022-12-06] MEDS ORDERED: ALBUTEROL (0.083%) 2.5MG/3ML NEB HHN STA (19:50)
[2022-12-06] MEDS ORDERED: METHYLPREDNISOLONE SOD SUCC 125 MG/2 ML VIAL IV STA (19:50)
[2022-12-06] MEDS ORDERED: IPRATROPIUM BROMIDE (0.02%) 0.5MG/2.5ML NEB HHN STA (19:50)
[2022-12-06 20:00] LABS: BASOPHILS % 1.5 % (0.0-2.0); EOSINOPHILS % 8.2 % (0.0-5.0); HEMATOCRIT. 32.1 % (42.0-52.0); HEMOGLOBIN. 10.3 g/dL (14.0-18.0); LYMPHOCYTES % 34.9 % (20.0-50.0); MEAN CORPUSCULAR HEMOGLOBIN 28.7 pg (28.0-32.0); MEAN CORPUSCULAR VOLUME 89.3 fL (80.0-94.0); MEAN PLATELET VOLUME 8.5 fl (7.4-10.4); MONOCYTES % 9.3 % (2.0-8.0); NEUTROPHILS % 46.1 % (40.0-76.0); PLATELET 188 x1000/uL (130-400); RED BLOOD CELL COUNT 3.59 mill/uL (4.7-6.1); RED CELL DISTRIBUTION WIDTH 26.6 % (11.6-14.6)
[2022-12-06] MEDS ORDERED: ASPIRIN 81MG TABLET PO ONE (20:00)
[2022-12-06 20:12] LABS: CHLORIDE 100 mEq/L (98-107)
[2022-12-06 20:39] LABS: PLATELET ESTIMATE NORMAL
[2022-12-06 20:42] LABS: PARTIAL THROMBOPLASTIN TIME 26.3 sec (23.4-31.0); PROTHROMBIN TIME 10.4 sec (9.6-11.0)
[2022-12-06] MEDS ORDERED: VANCOMYCIN 1G PREMIX 200 ML IV ONE (21:00)
[2022-12-06] MEDS ORDERED: SODIUM CHLORIDE 0.9% 1000ML BAG (SEPSIS BOLUS) IV ONE (21:00)
[2022-12-06] MEDS ORDERED: PIPERACILLIN/TAZ 3.375G PREMIX 50 ML IV ONE (21:00)
[2022-12-06 21:25] LABS: BG BASE EXCESS 5.1 mmol/L (-2.0-2.0); BG CARBOXYHEMOGLOBIN 0.3 % (0.5-1.5); BG DEOXYHEMOGLOBIN 1.8 % (0.0-5.0); BG FRACTION INSPIRED OXYGEN 40; BG HCO3 ACT 32.2 mmol/L (22.0-26.0); BG METHEMOGLOBIN 0.3 % (0.0-1.5); BG OXYGEN SATURATION 98.2 % (92.0-98.5); BG OXYHEMOGLOBIN 97.6 % (94.0-97.0); BG PH 7.333 (7.350-7.450); BG PO2 119.6 mmHg (75.0-100.0); BG SAMPLE SITE RIGHT BRACHIAL; BG TOTAL HEMOGLOBIN 9.7 g/dL (12.0-18.0); BG VENT MODE MASK - BIPAP
[2022-12-06] MEDS ORDERED: VANCOMYCIN 1G PREMIX 200 ML IV SCH (22:45)
[2022-12-06] MEDS ORDERED: SODIUM CHLORIDE 0.9% 1,000 ML IV ONE (22:45)
[2022-12-06] MEDS ORDERED: SODIUM BICARBONATE 8.4% 1 MEQ/ML 50ML SYR IV ONE (23:00)
[2022-12-06] MEDS ORDERED: SODIUM BICARBONATE 8.4% 1 MEQ/ML 50ML SYR IV NR (23:45)
[2022-12-07] VITALS (7 sets, daily range): BP systolic 91–156; BP diastolic 41–68
[2022-12-07 02:14] LABS: CLARITY URINE CLEAR (CLEAR); COLOR URINE YELLOW (YELLOW); KETONES URINE NEGATIVE (NEGATIVE); LEUKOCYTE ESTERASE URINE 1+ (NEGATIVE); NITRITE URINE NEGATIVE (NEGATIVE); OCCULT BLOOD URINE NEGATIVE (NEGATIVE); PROTEIN URINE NEGATIVE (NEGATIVE); SPECIFIC GRAVITY URINE 1.008 (1.005-1.030); UROBILINOGEN URINE 0.2 E.U./dL (0.2-1.0)
[2022-12-07] MEDS ORDERED: ONDANSETRON HCL 4MG/2ML INJ IV PRN (09:45)
[2022-12-07] MEDS ORDERED: DIPHENHYDRAMINE 50MG/ML VIAL IV PRN (09:45)
[2022-12-07] MEDS ORDERED: ACETAMINOPHEN 325MG TABLET PO PRN (09:45)
[2022-12-07] MEDS ORDERED: CLONIDINE 0.1MG TABLET PO PRN (09:45)
[2022-12-07] MEDS ORDERED: IPRATROPIUM/ALBUTEROL 0.5-3(2.5)MG/3ML NEB HHN PRN ×2 (09:45→14:45)
[2022-12-07] MEDS ORDERED: CEFTRIAXONE 1GM PREMIX 50 ML IV SCH (09:45)
[2022-12-07] MEDS: AZITHROMYCIN 500 MG in DEXT 5% WATER 250 ML IV SCH (15:43)
[2022-12-07] MEDS: CEFTRIAXONE 1,000 MG in DEXTROSE 5% WATER 50 ML IV SCH (15:44)
[2022-12-07] MEDS: IPRATROPIUM/ALBUTEROL 0.5-3(2.5)MG/3ML NEB HHN SCH ×2 (15:52→21:08)
[2022-12-07] MEDS ORDERED: LORAZEPAM 2MG/ML CPJ IV PRN (16:15)
[2022-12-07] MEDS ORDERED: NALOXONE HCL 0.4MG/ML VIAL IV PRN (16:30)
[2022-12-07] MEDS: CARBAMAZEPINE 200MG TABLET PO SCH (18:02)
[2022-12-07] MEDS: PRIMIDONE 250 MG TABLET PO SCH (18:02)
[2022-12-07] MEDS: OLANZAPINE 5MG TABLET PO SCH (20:29)
[2022-12-07] MEDS: HYDROCODONE/ACETAMINOPHEN 5/325MG TABLET PO PRN (20:31)
[2022-12-07] MEDS: BUDESONIDE 0.5MG/2ML NEB HHN SCH (21:08)
[2022-12-08] VITALS (12 sets, daily range): BP systolic 95–127; BP diastolic 39–60
[2022-12-08] MEDS: IPRATROPIUM/ALBUTEROL 0.5-3(2.5)MG/3ML NEB HHN SCH ×5 (00:34→20:24)
[2022-12-08 06:52] LABS: BASOPHILS % 1.9 % (0.0-2.0); EOSINOPHILS % 9.9 % (0.0-5.0); HEMATOCRIT. 28.2 % (42.0-52.0); HEMOGLOBIN. 9.1 g/dL (14.0-18.0); LYMPHOCYTES % 37.8 % (20.0-50.0); MEAN CORPUSCULAR HEMOGLOBIN 28.6 pg (28.0-32.0); MEAN PLATELET VOLUME 8.7 fl (7.4-10.4); MONOCYTES % 10.1 % (2.0-8.0); NEUTROPHILS % 40.3 % (40.0-76.0); PLATELET 170 x1000/uL (130-400); RED BLOOD CELL COUNT 3.17 mill/uL (4.7-6.1); RED CELL DISTRIBUTION WIDTH 26.9 % (11.6-14.6)
[2022-12-08 07:20] LABS: CHLORIDE 105 mEq/L (98-107)
[2022-12-08 08:02] LABS: BG BASE EXCESS 6.5 mmol/L (-2.0-2.0); BG CARBOXYHEMOGLOBIN 0.3 % (0.5-1.5); BG DEOXYHEMOGLOBIN 1.5 % (0.0-5.0); BG HCO3 ACT 32.9 mmol/L (22.0-26.0); BG METHEMOGLOBIN 0.1 % (0.0-1.5); BG OXYGEN SATURATION 98.5 % (92.0-98.5); BG OXYHEMOGLOBIN 98.1 % (94.0-97.0); BG PCO2 57.7 mmHg (35.0-45.0); BG PH 7.374 (7.350-7.450); BG PO2 133.2 mmHg (75.0-100.0); BG SAMPLE SITE RIGHT BRACHIAL; BG TOTAL HEMOGLOBIN 9.9 g/dL (12.0-18.0); BG VENT MODE MASK - BIPAP
[2022-12-08] MEDS: BUDESONIDE 0.5MG/2ML NEB HHN SCH ×2 (09:00→20:24)
[2022-12-08] MEDS: CEFTRIAXONE 1,000 MG in DEXTROSE 5% WATER 50 ML IV SCH (12:10)
[2022-12-08] MEDS: AZITHROMYCIN 500 MG in DEXT 5% WATER 250 ML IV SCH (12:10)
[2022-12-08] MEDS: CARBAMAZEPINE 200MG TABLET PO SCH (17:36)
[2022-12-08] MEDS: PRIMIDONE 250 MG TABLET PO SCH (17:36)
[2022-12-08] MEDS: OLANZAPINE 5MG TABLET PO SCH (20:05)
[2022-12-08] MEDS: HYDROCODONE/ACETAMINOPHEN 5/325MG TABLET PO PRN (20:06)
[2022-12-09] VITALS (12 sets, daily range): BP systolic 97–135; BP diastolic 42–86
[2022-12-09] MEDS: IPRATROPIUM/ALBUTEROL 0.5-3(2.5)MG/3ML NEB HHN SCH ×5 (00:04→20:17)
[2022-12-09 07:30] LABS: CHLORIDE 106 mEq/L (98-107)
[2022-12-09 07:53] LABS: HEMATOCRIT. 30.1 % (42.0-52.0); HEMOGLOBIN. 9.7 g/dL (14.0-18.0); MEAN CORPUSCULAR HEMOGLOBIN 28.6 pg (28.0-32.0); MEAN CORPUSCULAR VOLUME 88.6 fL (80.0-94.0); MEAN PLATELET VOLUME 8.8 fl (7.4-10.4); PLATELET 187 x1000/uL (130-400); RED BLOOD CELL COUNT 3.39 mill/uL (4.7-6.1); RED CELL DISTRIBUTION WIDTH 27.1 % (11.6-14.6)
[2022-12-09] MEDS: BUDESONIDE 0.5MG/2ML NEB HHN SCH ×2 (08:14→20:17)
[2022-12-09] MEDS: CEFTRIAXONE 1,000 MG in DEXTROSE 5% WATER 50 ML IV SCH (10:50)
[2022-12-09] MEDS: AZITHROMYCIN 500 MG in DEXT 5% WATER 250 ML IV SCH (11:38)
[2022-12-09 14:04] LABS: PLATELET ESTIMATE NORMAL
[2022-12-09] MEDS: PRIMIDONE 250 MG TABLET PO SCH (17:23)
[2022-12-09] MEDS: CARBAMAZEPINE 200MG TABLET PO SCH (17:23)
[2022-12-09] MEDS: OLANZAPINE 5MG TABLET PO SCH (20:35)
[2022-12-10] VITALS (8 sets, daily range): BP systolic 83–130; BP diastolic 33–73
[2022-12-10] MEDS: IPRATROPIUM/ALBUTEROL 0.5-3(2.5)MG/3ML NEB HHN SCH ×4 (00:05→12:27)
[2022-12-10] MEDS: BUDESONIDE 0.5MG/2ML NEB HHN SCH (07:51)
[2022-12-10] MEDS: CEFTRIAXONE 1,000 MG in DEXTROSE 5% WATER 50 ML IV SCH (11:59)
[2022-12-10] MEDS: AZITHROMYCIN 500 MG in DEXT 5% WATER 250 ML IV SCH (12:56)
[2022-12-10] MEDS ORDERED: ALBU2.5V13 NEB (13:38)
[2022-12-10] MEDS ORDERED: ALBU18HF2 IH (13:38)
[2022-12-10] MEDS ORDERED: AZIT500T8 MT (13:38)
[2022-12-10] MEDS ORDERED: FLUT1DIS2 INH (13:38)
== END 2022-12-10 15:05 | disposition home or self-care (01) | DRG 139 ==
LOC: ER 19:36 → MICUSO 22:22 → 5EST 12-07 09:07
PROVIDERS: ADMIT Internal Medicine; ATTEND Internal Medicine
PROC: 5A09357 Assistance with Respiratory Ventilation, Less than 24 Consecutive Hours, Continuous Positive Airway Pressure (ICD-10-PCS; principal; 2022-12-06)
DX: J18.9 Pneumonia, unspecified organism (principal); J96.01 Acute respiratory failure with hypoxia; J96.02 Acute respiratory failure with hypercapnia; E44.1 Mild protein-calorie malnutrition; I11.0 Hypertensive heart disease with heart failure; I50.20 Unspecified systolic (congestive) heart failure; J44.0 Chronic obstructive pulmonary disease with (acute) lower respiratory infection; Z68.1 Body mass index [BMI] 19.9 or less, adult; D64.9 Anemia, unspecified; J44.1 Chronic obstructive pulmonary disease with (acute) exacerbation; G40.909 Epilepsy, unspecified, not intractable, without status epilepticus; Z20.822 Contact with and (suspected) exposure to COVID-19; E87.5 Hyperkalemia; Z86.15 Personal history of latent tuberculosis infection; Z99.81 Dependence on supplemental oxygen
CPT/HCPCS: 36415; 36600; 71045; 80048; 80053; 81003; 82375; 82805; 83605; 83880; 84484; 85025; 87426; 93005; 93970; 94640; 94660; 99291; J0456; J0696; J2060; J2405; J2543; J2930; J3370; J3490; J7030; J7060; J7626

== ENCOUNTER 2022-12-20 18:43 | Inpatient (IN) | payer MEDICAID ==
[~2022-12-20] VITALS: Ht 170.2 cm; Wt 40.6 kg
[~2022-12-20 18:43] MED LIST changes: +AZIT500T8 MT; -SPIR25TA6 PO
[2022-12-20] MEDS ORDERED: FAMOTIDINE 20MG/2ML VIAL IV ONE (19:15)
[2022-12-20] MEDS ORDERED: IPRATROPIUM/ALBUTEROL 0.5-3(2.5)MG/3ML NEB HHN ONE (19:15)
[2022-12-20] MEDS ORDERED: DEXAMETHASONE 10 MG/ML VIAL IV ONE (19:15)
[2022-12-20 19:27] LABS: CHLORIDE 101 mEq/L (98-107)
[2022-12-20 19:28] LABS: BASOPHILS % 0.6 % (0.0-2.0); EOSINOPHILS % 8.2 % (0.0-5.0); HEMATOCRIT. 31.8 % (42.0-52.0); HEMOGLOBIN. 10.2 g/dL (14.0-18.0); LYMPHOCYTES % 30.6 % (20.0-50.0); MEAN CORPUSCULAR VOLUME 90.1 fL (80.0-94.0); MEAN PLATELET VOLUME 8.9 fl (7.4-10.4); MONOCYTES % 9.6 % (2.0-8.0); PLATELET 201 x1000/uL (130-400); RED BLOOD CELL COUNT 3.53 mill/uL (4.7-6.1); RED CELL DISTRIBUTION WIDTH 24.8 % (11.6-14.6)
[2022-12-20 20:40] LABS: BG BASE EXCESS 6.1 mmol/L (-2.0-2.0); BG CARBOXYHEMOGLOBIN 0.3 % (0.5-1.5); BG DEOXYHEMOGLOBIN 0.3 % (0.0-5.0); BG FRACTION INSPIRED OXYGEN 100; BG HCO3 ACT 33.5 mmol/L (22.0-26.0); BG METHEMOGLOBIN 0.1 % (0.0-1.5); BG OXYGEN SATURATION 99.7 % (92.0-98.5); BG OXYHEMOGLOBIN 99.3 % (94.0-97.0); BG PCO2 64.1 mmHg (35.0-45.0); BG PH 7.336 (7.350-7.450); BG PO2 439.6 mmHg (75.0-100.0); BG SAMPLE SITE RIGHT RADIAL; BG TOTAL HEMOGLOBIN 10.7 g/dL (12.0-18.0); BG VENT MODE MASK - BIPAP
[2022-12-20 20:45] LABS: PLATELET ESTIMATE NORMAL
[2022-12-21] VITALS (11 sets, daily range): BP systolic 100–130; BP diastolic 42–68
[2022-12-21] MEDS ORDERED: IPRATROPIUM/ALBUTEROL 0.5-3(2.5)MG/3ML NEB HHN PRN (08:00)
[2022-12-21] MEDS ORDERED: ONDANSETRON HCL 4MG/2ML INJ IV PRN (08:00)
[2022-12-21] MEDS ORDERED: DIPHENHYDRAMINE 50MG/ML VIAL IV PRN (08:00)
[2022-12-21] MEDS ORDERED: ACETAMINOPHEN 325MG TABLET PO PRN (08:00)
[2022-12-21] MEDS ORDERED: CLONIDINE 0.1MG TABLET PO PRN (08:00)
[2022-12-21] MEDS ORDERED: NALOXONE HCL 0.4MG/ML VIAL IV PRN (10:15)
[2022-12-21] MEDS: PRIMIDONE 250 MG TABLET PO SCH (10:21)
[2022-12-21] MEDS: CLOPIDOGREL 75MG TABLET PO SCH (10:21)
[2022-12-21] MEDS: SERTRALINE HCL 50MG TABLET PO SCH (10:21)
[2022-12-21 12:37] LABS: BG BASE EXCESS 8.2 mmol/L (-2.0-2.0); BG CARBOXYHEMOGLOBIN 0.3 % (0.5-1.5); BG FRACTION INSPIRED OXYGEN 40; BG HCO3 ACT 35.5 mmol/L (22.0-26.0); BG METHEMOGLOBIN 0.2 % (0.0-1.5); BG OXYHEMOGLOBIN 98.5 % (94.0-97.0); BG PCO2 65.8 mmHg (35.0-45.0); BG PO2 189.7 mmHg (75.0-100.0); BG SAMPLE SITE LEFT BRACHIAL; BG TOTAL HEMOGLOBIN 10.5 g/dL (12.0-18.0); BG VENT MODE MASK - BIPAP
[2022-12-21] MEDS ORDERED: SIMETHICONE 80MG TABLET CHEW PO PRN (13:00)
[2022-12-21] MEDS: CALCIUM CARBONATE 500MG TABLET CHEW PO SCH ×2 (13:12→17:45)
[2022-12-21] MEDS: SUCRALFATE 1G TABLET PO SCH ×3 (13:13→20:52)
[2022-12-21] MEDS: IPRATROPIUM/ALBUTEROL 0.5-3(2.5)MG/3ML NEB HHN SCH ×2 (15:30→20:27)
[2022-12-21] MEDS: CARBAMAZEPINE 200MG TABLET PO SCH (17:45)
[2022-12-21] MEDS: BUDESONIDE 0.5MG/2ML NEB HHN SCH (20:28)
[2022-12-21] MEDS: ATORVASTATIN CALCIUM 20MG TABLET PO SCH (20:53)
[2022-12-21] MEDS: OLANZAPINE 5MG TABLET PO SCH (20:53)
[2022-12-21] MEDS: HYDROCODONE/ACETAMINOPHEN 5/325MG TABLET PO PRN (21:48)
[2022-12-22] VITALS (14 sets, daily range): BP systolic 90–118; BP diastolic 27–57
[2022-12-22] MEDS: IPRATROPIUM/ALBUTEROL 0.5-3(2.5)MG/3ML NEB HHN SCH ×4 (01:22→19:55)
[2022-12-22 08:07] LABS: BASOPHILS % 1.2 % (0.0-2.0); EOSINOPHILS % 8.2 % (0.0-5.0); HEMATOCRIT. 25.6 % (42.0-52.0); HEMOGLOBIN. 8.5 g/dL (14.0-18.0); LYMPHOCYTES % 41.8 % (20.0-50.0); MEAN CORPUSCULAR HEMOGLOBIN 29.7 pg (28.0-32.0); MEAN CORPUSCULAR VOLUME 89.5 fL (80.0-94.0); MEAN PLATELET VOLUME 8.9 fl (7.4-10.4); MONOCYTES % 8.3 % (2.0-8.0); NEUTROPHILS % 40.5 % (40.0-76.0); PLATELET 167 x1000/uL (130-400); RED BLOOD CELL COUNT 2.86 mill/uL (4.7-6.1); RED CELL DISTRIBUTION WIDTH 24.4 % (11.6-14.6)
[2022-12-22 08:37] LABS: CHLORIDE 100 mEq/L (98-107)
[2022-12-22] MEDS: SUCRALFATE 1G TABLET PO SCH ×4 (08:42→22:35)
[2022-12-22] MEDS: CALCIUM CARBONATE 500MG TABLET CHEW PO SCH ×3 (08:42→18:17)
[2022-12-22] MEDS: PRIMIDONE 250 MG TABLET PO SCH (08:42)
[2022-12-22] MEDS: CLOPIDOGREL 75MG TABLET PO SCH (08:42)
[2022-12-22] MEDS: SERTRALINE HCL 50MG TABLET PO SCH (08:43)
[2022-12-22] MEDS: BUDESONIDE 0.5MG/2ML NEB HHN SCH ×2 (09:06→19:55)
[2022-12-22] MEDS: CARBAMAZEPINE 200MG TABLET PO SCH (18:16)
[2022-12-22] MEDS: ATORVASTATIN CALCIUM 20MG TABLET PO SCH (21:00)
[2022-12-22] MEDS: OLANZAPINE 5MG TABLET PO SCH (22:35)
[2022-12-23] VITALS (19 sets, daily range): BP systolic 97–137; BP diastolic 38–98
[2022-12-23] MEDS: IPRATROPIUM/ALBUTEROL 0.5-3(2.5)MG/3ML NEB HHN SCH ×4 (02:07→20:06)
[2022-12-23] MEDS: BUDESONIDE 0.5MG/2ML NEB HHN SCH ×2 (08:25→20:06)
[2022-12-23] MEDS: CALCIUM CARBONATE 500MG TABLET CHEW PO SCH ×3 (08:42→17:26)
[2022-12-23] MEDS: CLOPIDOGREL 75MG TABLET PO SCH (08:42)
[2022-12-23] MEDS: PRIMIDONE 250 MG TABLET PO SCH (08:42)
[2022-12-23] MEDS: SERTRALINE HCL 50MG TABLET PO SCH (08:43)
[2022-12-23] MEDS: SUCRALFATE 1G TABLET PO SCH ×3 (08:43→20:53)
[2022-12-23 09:03] LABS: BG BASE EXCESS 9.9 mmol/L (-2.0-2.0); BG CARBOXYHEMOGLOBIN 0.2 % (0.5-1.5); BG DEOXYHEMOGLOBIN 1.9 % (0.0-5.0); BG FRACTION INSPIRED OXYGEN 32; BG HCO3 ACT 36.6 mmol/L (22.0-26.0); BG METHEMOGLOBIN 0.5 % (0.0-1.5); BG OXYGEN SATURATION 98.1 % (92.0-98.5); BG OXYHEMOGLOBIN 97.4 % (94.0-97.0); BG PCO2 62.9 mmHg (35.0-45.0); BG PH 7.383 (7.350-7.450); BG PO2 115.6 mmHg (75.0-100.0); BG SAMPLE SITE RIGHT RADIAL; BG TOTAL HEMOGLOBIN 9.5 g/dL (12.0-18.0); BG VENT MODE NASAL CANNULA
[2022-12-23] MEDS: CARBAMAZEPINE 200MG TABLET PO SCH (17:26)
[2022-12-23] MEDS: ATORVASTATIN CALCIUM 20MG TABLET PO SCH (20:34)
[2022-12-23] MEDS: OLANZAPINE 5MG TABLET PO SCH (20:34)
[2022-12-23] MEDS: HYDROCODONE/ACETAMINOPHEN 5/325MG TABLET PO PRN (20:35)
[2022-12-24] VITALS (11 sets, daily range): BP systolic 105–147; BP diastolic 52–79
[2022-12-24] MEDS: IPRATROPIUM/ALBUTEROL 0.5-3(2.5)MG/3ML NEB HHN SCH ×4 (02:18→20:52)
[2022-12-24] MEDS: BUDESONIDE 0.5MG/2ML NEB HHN SCH (08:15)
[2022-12-24] MEDS: PRIMIDONE 250 MG TABLET PO SCH (09:02)
[2022-12-24] MEDS: SERTRALINE HCL 50MG TABLET PO SCH (09:02)
[2022-12-24] MEDS: SUCRALFATE 1G TABLET PO SCH ×4 (09:02→21:04)
[2022-12-24] MEDS: CLOPIDOGREL 75MG TABLET PO SCH (09:02)
[2022-12-24] MEDS: CALCIUM CARBONATE 500MG TABLET CHEW PO SCH ×3 (09:02→17:07)
[2022-12-24] MEDS: CARBAMAZEPINE 200MG TABLET PO SCH (17:07)
[2022-12-24] MEDS: ATORVASTATIN CALCIUM 20MG TABLET PO SCH (21:04)
[2022-12-24] MEDS: OLANZAPINE 5MG TABLET PO SCH (21:04)
[2022-12-25] VITALS: BP 124/64
[2022-12-25] MEDS: HYDROCODONE/ACETAMINOPHEN 5/325MG TABLET PO PRN ×2 (01:51→15:57)
[2022-12-25] MEDS: IPRATROPIUM/ALBUTEROL 0.5-3(2.5)MG/3ML NEB HHN SCH ×4 (02:08→20:46)
[2022-12-25 04:00] VITALS: BP 123/60
[2022-12-25 08:00] VITALS: BP 115/57
[2022-12-25] MEDS: PRIMIDONE 250 MG TABLET PO SCH (08:28)
[2022-12-25] MEDS: CLOPIDOGREL 75MG TABLET PO SCH (08:28)
[2022-12-25] MEDS: SERTRALINE HCL 50MG TABLET PO SCH (08:28)
[2022-12-25] MEDS: CALCIUM CARBONATE 500MG TABLET CHEW PO SCH ×3 (08:28→17:15)
[2022-12-25] MEDS: SUCRALFATE 1G TABLET PO SCH ×4 (08:28→20:18)
[2022-12-25 10:51] LABS: BG BASE EXCESS 9.3 mmol/L (-2.0-2.0); BG CARBOXYHEMOGLOBIN 0.3 % (0.5-1.5); BG DEOXYHEMOGLOBIN 2.9 % (0.0-5.0); BG FRACTION INSPIRED OXYGEN 32; BG HCO3 ACT 35.8 mmol/L (22.0-26.0); BG METHEMOGLOBIN 0.2 % (0.0-1.5); BG OXYGEN SATURATION 97.1 % (92.0-98.5); BG OXYHEMOGLOBIN 96.6 % (94.0-97.0); BG PCO2 59.6 mmHg (35.0-45.0); BG PH 7.397 (7.350-7.450); BG PO2 93.8 mmHg (75.0-100.0); BG SAMPLE SITE LEFT RADIAL; BG TOTAL HEMOGLOBIN 10.9 g/dL (12.0-18.0); BG VENT MODE NASAL CANNULA
[2022-12-25 12:00] VITALS: BP 125/61
[2022-12-25 16:00] VITALS: BP 128/62
[2022-12-25] MEDS ORDERED: LORAZEPAM 2MG/ML CPJ IV NR (16:15)
[2022-12-25] MEDS: CARBAMAZEPINE 200MG TABLET PO SCH (17:40)
[2022-12-25 20:00] VITALS: BP 153/64
[2022-12-25] MEDS: ATORVASTATIN CALCIUM 20MG TABLET PO SCH (20:18)
[2022-12-25] MEDS: OLANZAPINE 5MG TABLET PO SCH (20:18)
[2022-12-26] VITALS: BP 102/55
[2022-12-26] MEDS: IPRATROPIUM/ALBUTEROL 0.5-3(2.5)MG/3ML NEB HHN SCH ×4 (00:41→11:44)
[2022-12-26 04:00] VITALS: BP 103/48
[2022-12-26 08:00] VITALS: BP 153/75
[2022-12-26] MEDS: SUCRALFATE 1G TABLET PO SCH ×4 (09:43→22:15)
[2022-12-26] MEDS: CALCIUM CARBONATE 500MG TABLET CHEW PO SCH ×3 (09:43→17:20)
[2022-12-26] MEDS: PRIMIDONE 250 MG TABLET PO SCH (09:43)
[2022-12-26] MEDS: CLOPIDOGREL 75MG TABLET PO SCH (09:43)
[2022-12-26] MEDS: SERTRALINE HCL 50MG TABLET PO SCH (09:44)
[2022-12-26 12:00] VITALS: BP 123/67
[2022-12-26] MEDS: CARBAMAZEPINE 200MG TABLET PO SCH (17:20)
[2022-12-26 20:00] VITALS: BP 138/54
[2022-12-26] MEDS: OLANZAPINE 5MG TABLET PO SCH (22:15)
[2022-12-26] MEDS: ATORVASTATIN CALCIUM 20MG TABLET PO SCH (22:15)
[2022-12-27 00:21] VITALS: BP 128/70
[2022-12-27 04:00] VITALS: BP 108/58
[2022-12-27 08:00] VITALS: BP 126/68
[2022-12-27] MEDS: SERTRALINE HCL 50MG TABLET PO SCH (08:06)
[2022-12-27] MEDS: CLOPIDOGREL 75MG TABLET PO SCH (08:06)
[2022-12-27] MEDS: CALCIUM CARBONATE 500MG TABLET CHEW PO SCH ×3 (08:06→17:17)
[2022-12-27] MEDS: SUCRALFATE 1G TABLET PO SCH ×3 (08:06→17:17)
[2022-12-27] MEDS ORDERED: IPRATROPIUM/ALBUTEROL 0.5-3(2.5)MG/3ML NEB HHN PRN (11:15)
[2022-12-27 12:00] VITALS: BP 117/49
[2022-12-27] MEDS ORDERED: BUDESONIDE 0.5MG/2ML NEB HHN SCH (12:00)
[2022-12-27] MEDS: IPRATROPIUM/ALBUTEROL 0.5-3(2.5)MG/3ML NEB HHN SCH ×2 (13:31→16:00)
[2022-12-27] MEDS ORDERED: AZIT500T8 MT (14:23)
[2022-12-27 15:30] VITALS: BP 117/59
[2022-12-27 15:47] VITALS: BP 139/62
[2022-12-27] MEDS: CARBAMAZEPINE 200MG TABLET PO SCH (17:18)
== END 2022-12-27 20:37 | disposition home or self-care (01) | DRG 139 ==
LOC: ER 18:43 → MICUSO 21:32 → EDBEDREQTM 23:16 → EDBEDREQ 23:16 → 5EST 12-21 01:34
PROVIDERS: ADMIT Internal Medicine; ATTEND Internal Medicine
PROC: 5A09357 Assistance with Respiratory Ventilation, Less than 24 Consecutive Hours, Continuous Positive Airway Pressure (ICD-10-PCS; principal; 2022-12-20)
PROC: 5A09357 Assistance with Respiratory Ventilation, Less than 24 Consecutive Hours, Continuous Positive Airway Pressure (ICD-10-PCS; 2022-12-22)
PROC: 5A09357 Assistance with Respiratory Ventilation, Less than 24 Consecutive Hours, Continuous Positive Airway Pressure (ICD-10-PCS; 2022-12-24)
PROC: 5A09357 Assistance with Respiratory Ventilation, Less than 24 Consecutive Hours, Continuous Positive Airway Pressure (ICD-10-PCS; 2022-12-26)
DX: J18.9 Pneumonia, unspecified organism (principal); J96.21 Acute and chronic respiratory failure with hypoxia; E87.29 Other acidosis; J44.1 Chronic obstructive pulmonary disease with (acute) exacerbation; I11.0 Hypertensive heart disease with heart failure; I50.22 Chronic systolic (congestive) heart failure; J96.22 Acute and chronic respiratory failure with hypercapnia; J44.0 Chronic obstructive pulmonary disease with (acute) lower respiratory infection; D64.9 Anemia, unspecified; G40.909 Epilepsy, unspecified, not intractable, without status epilepticus; K21.9 Gastro-esophageal reflux disease without esophagitis; I50.20 Unspecified systolic (congestive) heart failure; K29.70 Gastritis, unspecified, without bleeding; Z99.81 Dependence on supplemental oxygen; Z22.7 Latent tuberculosis
CPT/HCPCS: 36415; 36600; 71045; 80053; 82375; 82805; 83880; 84484; 85025; 93005; 93970; 94640; 94660; 99291; J1100; J2060; J3490; J7626

== ENCOUNTER 2023-01-13 14:29 | Inpatient (IN) | payer MEDICAID ==
[~2023-01-13] VITALS: Ht 162.6 cm; Wt 59.9 kg
[2023-01-13] MEDS ORDERED: ALBUTEROL (0.083%) 2.5MG/3ML NEB HHN STA (14:45)
[2023-01-13] MEDS ORDERED: MORPHINE SULFATE 4 MG/ML CPJ (NOT FOR IM USE) IV STA (14:45)
[2023-01-13] MEDS ORDERED: IPRATROPIUM BROMIDE (0.02%) 0.5MG/2.5ML NEB HHN STA (14:45)
[2023-01-13] MEDS ORDERED: METHYLPREDNISOLONE SOD SUCC 125 MG/2 ML VIAL IV STA (14:45)
[2023-01-13 15:15] LABS: BASOPHILS % 0.8 % (0.0-2.0); HEMATOCRIT. 37.4 % (42.0-52.0); HEMOGLOBIN. 12.2 g/dL (14.0-18.0); LYMPHOCYTES % 21.4 % (20.0-50.0); MEAN CORPUSCULAR VOLUME 92.5 fL (80.0-94.0); MEAN PLATELET VOLUME 8.8 fl (7.4-10.4); MONOCYTES % 6.8 % (2.0-8.0); PLATELET 212 x1000/uL (130-400); RED BLOOD CELL COUNT 4.05 mill/uL (4.7-6.1); RED CELL DISTRIBUTION WIDTH 20.8 % (11.6-14.6)
[2023-01-13 15:23] LABS: PROTHROMBIN TIME 10.3 sec (9.6-11.0)
[2023-01-13 15:38] LABS: CHLORIDE 97 mEq/L (98-107)
[2023-01-13] MEDS ORDERED: LEVOFLOXACIN 750MG PREMIX 150 ML IV ONE (17:00)
[2023-01-14] MEDS ORDERED: CLONIDINE 0.1MG TABLET PO PRN
[2023-01-14] MEDS ORDERED: ACETAMINOPHEN 325MG TABLET PO PRN
[2023-01-14] MEDS ORDERED: DOCUSATE SODIUM 100MG CAPSULE PO PRN
[2023-01-14] MEDS ORDERED: MAGNESIUM/ALUMINUM HYDROXIDE/SIMETHICONE 30ML UDC PO PRN
[2023-01-14] MEDS ORDERED: ONDANSETRON HCL 4MG/2ML INJ IV PRN
[2023-01-14 00:49] LABS: CLARITY URINE CLEAR (CLEAR); COLOR URINE YELLOW (YELLOW); KETONES URINE NEGATIVE (NEGATIVE); LEUKOCYTE ESTERASE URINE TRACE (NEGATIVE); NITRITE URINE NEGATIVE (NEGATIVE); OCCULT BLOOD URINE NEGATIVE (NEGATIVE); PROTEIN URINE NEGATIVE (NEGATIVE); SPECIFIC GRAVITY URINE 1.011 (1.005-1.030); UROBILINOGEN URINE 0.2 E.U./dL (0.2-1.0)
[2023-01-14 01:00] LABS: *AMPHETAMINES SCREEN URINE NEGATIVE (NEGATIVE); *BARBITURATES SCREEN URINE PRESUMTIVE POSITIVE (NEGATIVE); *BENZODIAZEPINES SCREEN URINE NEGATIVE (NEGATIVE); *COCAINE SCREEN URINE NEGATIVE (NEGATIVE); CANNABINOID URINE SCREEN NEGATIVE (NEGATIVE); METHADONE URINE SCREEN NEGATIVE (NEGATIVE); OPIATES URINE SCREEN PRESUMTIVE POSITIVE (NEGATIVE); PHENCYCLIDINE URINE SCREEN NEGATIVE (NEGATIVE)
[2023-01-14] MEDS ORDERED: METHYLPREDNISOLONE SOD SUCC 125 MG/2 ML VIAL IV SCH (06:00)
[2023-01-14 09:18] VITALS: BP 144/52
[2023-01-14] MEDS: IPRATROPIUM/ALBUTEROL 0.5-3(2.5)MG/3ML NEB HHN PRN ×2 (10:01→16:20)
[2023-01-14] MEDS: BUDESONIDE 0.5MG/2ML NEB HHN SCH ×2 (10:01→20:58)
[2023-01-14 11:23] LABS: BG BASE EXCESS 7.9 mmol/L (-2.0-2.0); BG CARBOXYHEMOGLOBIN 0.6 % (0.5-1.5); BG DEOXYHEMOGLOBIN 8.8 % (0.0-5.0); BG FRACTION INSPIRED OXYGEN 28; BG HCO3 ACT 35.3 mmol/L (22.0-26.0); BG METHEMOGLOBIN 0.2 % (0.0-1.5); BG OXYGEN SATURATION 91.1 % (92.0-98.5); BG OXYHEMOGLOBIN 90.4 % (94.0-97.0); BG PCO2 63.8 mmHg (35.0-45.0); BG PH 7.361 (7.350-7.450); BG PO2 61.1 mmHg (75.0-100.0); BG SAMPLE SITE RIGHT RADIAL; BG TOTAL HEMOGLOBIN 12.2 g/dL (12.0-18.0); BG VENT MODE NASAL CANNULA
[2023-01-14 12:00] VITALS: BP 130/55
[2023-01-14] MEDS ORDERED: LACTULOSE 20G/30ML UDC PO NR (13:45)
[2023-01-14] MEDS ORDERED: BISACODYL 5MG TABLET PO PRN (13:45)
[2023-01-14] MEDS: METHYLPREDNISOLONE SOD SUCC 40 MG/ML (ACT-O-VIAL) IV SCH ×2 (15:18→21:24)
[2023-01-14] MEDS: ENOXAPARIN 40MG/0.4ML SYR SUBCUT SCH (15:29)
[2023-01-14 16:00] VITALS: BP 128/51
[2023-01-14 17:23] VITALS: BP 144/52
[2023-01-14 20:00] VITALS: BP 117/53
[2023-01-14] MEDS: IPRATROPIUM/ALBUTEROL 0.5-3(2.5)MG/3ML NEB HHN SCH (20:57)
[2023-01-14] MEDS ORDERED: CARBAMAZEPINE 200MG TABLET PO NR (21:00)
[2023-01-14] MEDS: FAMOTIDINE 20MG TABLET PO SCH (21:23)
[2023-01-14] MEDS: PRIMIDONE 250 MG TABLET PO SCH (21:23)
[2023-01-15] VITALS: BP 128/41
[2023-01-15] MEDS: IPRATROPIUM/ALBUTEROL 0.5-3(2.5)MG/3ML NEB HHN SCH ×4 (02:45→21:05)
[2023-01-15 04:00] VITALS: BP 122/85
[2023-01-15] MEDS: METHYLPREDNISOLONE SOD SUCC 40 MG/ML (ACT-O-VIAL) IV SCH ×2 (06:03→13:57)
[2023-01-15 08:00] VITALS: BP 109/55
[2023-01-15] MEDS: FAMOTIDINE 20MG TABLET PO SCH ×2 (08:15→21:23)
[2023-01-15] MEDS: ENOXAPARIN 40MG/0.4ML SYR SUBCUT SCH (08:16)
[2023-01-15] MEDS: CARBAMAZEPINE 200MG TABLET PO SCH (08:16)
[2023-01-15] MEDS: BUDESONIDE 0.5MG/2ML NEB HHN SCH ×2 (08:34→21:05)
[2023-01-15 12:00] VITALS: BP 108/47
[2023-01-15 16:00] VITALS: BP 144/51
[2023-01-15] MEDS ORDERED: LACTULOSE 20G/30ML UDC PO PRN (17:30)
[2023-01-15] MEDS ORDERED: NA PHOS,M-B/NA PHOS,DI-BA ENEMA 118ML PR NR (17:30)
[2023-01-15] MEDS: HYDROCODONE/ACETAMINOPHEN 5/325MG TABLET PO PRN (17:43)
[2023-01-15 20:00] VITALS: BP 125/51
[2023-01-15] MEDS: PRIMIDONE 250 MG TABLET PO SCH (21:23)
[2023-01-15] MEDS: METHYLPREDNISOLONE SOD SUCC 125 MG/2 ML VIAL IV SCH (22:23)
[2023-01-16] VITALS (7 sets, daily range): BP systolic 107–134; BP diastolic 44–73
[2023-01-16] MEDS: IPRATROPIUM/ALBUTEROL 0.5-3(2.5)MG/3ML NEB HHN SCH ×3 (02:02→13:21)
[2023-01-16] MEDS: METHYLPREDNISOLONE SOD SUCC 125 MG/2 ML VIAL IV SCH ×2 (06:02→14:05)
[2023-01-16] MEDS: BUDESONIDE 0.5MG/2ML NEB HHN SCH (08:10)
[2023-01-16] MEDS: FAMOTIDINE 20MG TABLET PO SCH (08:36)
[2023-01-16] MEDS: CARBAMAZEPINE 200MG TABLET PO SCH (08:37)
[2023-01-16] MEDS: ENOXAPARIN 40MG/0.4ML SYR SUBCUT SCH (08:37)
[2023-01-16] MEDS ORDERED: LORA-249 MT (15:36)
[2023-01-16] MEDS: HYDROCODONE/ACETAMINOPHEN 5/325MG TABLET PO PRN (17:09)
== END 2023-01-16 17:45 | disposition home or self-care (01) | DRG 140 ==
LOC: ER 14:29 → MICUSO 16:54 → 8WST 01-14 09:54
PROVIDERS: ADMIT Internal Medicine; ATTEND Internal Medicine
PROC: 5A09357 Assistance with Respiratory Ventilation, Less than 24 Consecutive Hours, Continuous Positive Airway Pressure (ICD-10-PCS; principal; 2023-01-13)
DX: J44.1 Chronic obstructive pulmonary disease with (acute) exacerbation (principal); J96.21 Acute and chronic respiratory failure with hypoxia; I50.22 Chronic systolic (congestive) heart failure; I11.0 Hypertensive heart disease with heart failure; Z99.81 Dependence on supplemental oxygen; E11.9 Type 2 diabetes mellitus without complications; G40.909 Epilepsy, unspecified, not intractable, without status epilepticus; K21.9 Gastro-esophageal reflux disease without esophagitis; N40.0 Benign prostatic hyperplasia without lower urinary tract symptoms; J96.22 Acute and chronic respiratory failure with hypercapnia; K56.41 Fecal impaction; Z86.11 Personal history of tuberculosis; Z86.15 Personal history of latent tuberculosis infection; Z87.891 Personal history of nicotine dependence
CPT/HCPCS: 36415; 36600; 71045; 74176; 80053; 80305; 81003; 82375; 82805; 83880; 84484; 85025; 94640; 94644; 94660; 99291; J1650; J1956; J2920; J2930; J7626

== ENCOUNTER 2023-01-27 19:26 | Emergency (ER) | payer MEDICAID ==
[~2023-01-27] VITALS: Ht 167.6 cm; Wt 50.0 kg
[~2023-01-27 19:26] MED LIST changes: -AZIT500T8 MT; +LORA-249 MT
[2023-01-27] MEDS ORDERED: ALBUTEROL (0.083%) 2.5MG/3ML NEB HHN STA (19:45)
[2023-01-27] MEDS ORDERED: METHYLPREDNISOLONE SOD SUCC 125 MG/2 ML VIAL IV STA (19:45)
[2023-01-27 20:06] LABS: EOSINOPHILS % 5.4 % (0.0-5.0); HEMATOCRIT. 35.4 % (42.0-52.0); HEMOGLOBIN. 11.5 g/dL (14.0-18.0); LYMPHOCYTES % 27.3 % (20.0-50.0); MEAN CORPUSCULAR HEMOGLOBIN 29.9 pg (28.0-32.0); MEAN CORPUSCULAR VOLUME 92.2 fL (80.0-94.0); MEAN PLATELET VOLUME 8.2 fl (7.4-10.4); NEUTROPHILS % 58.3 % (40.0-76.0); PLATELET 234 x1000/uL (130-400); RED BLOOD CELL COUNT 3.84 mill/uL (4.7-6.1); RED CELL DISTRIBUTION WIDTH 19.2 % (11.6-14.6)
[2023-01-27 20:11] LABS: CHLORIDE 98 mEq/L (98-107)
[2023-01-27 21:23] LABS: BG BASE EXCESS 5.6 mmol/L (-2.0-2.0); BG CARBOXYHEMOGLOBIN 0.3 % (0.5-1.5); BG DEOXYHEMOGLOBIN 0.1 % (0.0-5.0); BG FRACTION INSPIRED OXYGEN 100; BG HCO3 ACT 33.6 mmol/L (22.0-26.0); BG METHEMOGLOBIN 0.3 % (0.0-1.5); BG OXYGEN SATURATION 99.9 % (92.0-98.5); BG OXYHEMOGLOBIN 99.3 % (94.0-97.0); BG PCO2 68.3 mmHg (35.0-45.0); BG PO2 553.7 mmHg (75.0-100.0); BG SAMPLE SITE RIGHT BRACHIAL; BG TOTAL HEMOGLOBIN 11.3 g/dL (12.0-18.0); BG VENT MODE MASK - BIPAP
[2023-01-28 02:00] VITALS: BP 148/66
== END 2023-01-28 02:30 | disposition short-term general hospital (02) ==
LOC: ER 19:26
DX: J44.1 Chronic obstructive pulmonary disease with (acute) exacerbation (principal); R06.03 Acute respiratory distress; E11.9 Type 2 diabetes mellitus without complications; I10 Essential (primary) hypertension; Z79.899 Other long term (current) drug therapy; Z20.822 Contact with and (suspected) exposure to COVID-19
CPT/HCPCS: 36415; 36600; 71045; 80053; 82375; 82805; 83880; 84484; 85025; 87426; 93005; 94640; 94660; 96374; 99291; C9803; J2930; Z7610

== ENCOUNTER 2023-07-25 03:21 | Emergency (ER) | payer MEDICAID ==
[~2023-07-25] VITALS: Ht 170.2 cm; Wt 70.0 kg
[~2023-07-25 03:21] MED LIST changes: +ACET-2708 PO; -ATOR20TA65 PO; +CARB200T6 MT; -CARB200T6 PO; +CHOL400D7 PO; -CLOP-31 PO; +CYCL5TAB PO; +DICL100G58 TP; -FLUT1DIS2 INH; -HYDR-4001 PO; -LORA-249 MT; +LORA10TA7 MT; +MONT-39 PO; -OLAN5TAB74 MT; -SERT50TA PO; -SUCR1TAB PO; -ZAFI10TA2 PO
[2023-07-25] MEDS ORDERED: ALBUTEROL (0.083%) 2.5MG/3ML NEB HHN ONE (04:15)
[2023-07-25] MEDS ORDERED: METHYLPREDNISOLONE SOD SUCC 125MG/2ML (ACT-O-VIAL) IV ONE (04:15)
[2023-07-25] MEDS ORDERED: IPRATROPIUM/ALBUTEROL 0.5-3(2.5)MG/3ML NEB HHN ONE (04:15)
[2023-07-25 04:19] LABS: BASOPHILS % 0.5 % (0.0-2.0); EOSINOPHILS % 4.5 % (0.0-5.0); LYMPHOCYTES % 23.7 % (20.0-50.0); MEAN CORPUSCULAR HEMOGLOBIN 31.5 pg (28.0-32.0); MEAN CORPUSCULAR HGB CONC 32.5 g/dL (31.0-37.0); MEAN CORPUSCULAR VOLUME 96.9 fL (80.0-94.0); MEAN PLATELET VOLUME 8.5 fl (7.4-10.4); MONOCYTES % 5.5 % (2.0-8.0); NEUTROPHILS % 65.8 % (40.0-76.0); PLATELET 269 x1000/uL (130-400); RED BLOOD CELL COUNT 3.81 mill/uL (4.7-6.1); RED CELL DISTRIBUTION WIDTH 14.5 % (11.6-14.6); WHITE BLOOD COUNT 8.9 x1000/uL (4.5-11.0)
[2023-07-25 04:33] LABS: PROTHROMBIN TIME 10.5 sec (9.6-11.0)
[2023-07-25 04:36] LABS: ALANINE AMINOTRANSFERASE 8 IU/L (10-49); ALBUMIN 4.1 g/dL (3.2-4.8); ASPARTATE AMINOTRANSFERASE 18 IU/L (<34); BILIRUBIN TOTAL 0.2 mg/dL (0.1-1.0); CALCIUM 9.7 mg/dL (8.7-10.4); CARBON DIOXIDE 38 mEq/L (21-32); CHLORIDE 99 mEq/L (98-107); CREATININE 0.8 mg/dL (0.6-1.3); GLUCOSE 102 mg/dL (70-105); POTASSIUM 4.8 mEq/L (3.5-5.1); PROTEIN TOTAL 7.2 g/dL (6.0-8.3); SODIUM 141 mEq/L (136-145); TROPONIN I HIGH SENSITIVITY 17 ng/L (3.0-53); UREA NITROGEN BLOOD 9 mg/dL (9-23)
[2023-07-25 04:40] VITALS: PULSE 86; RESP 16; O2SAT 100
[2023-07-25 09:51] VITALS: BP 106/53; PULSE 75; RESP 17; TEMP 98.4
== END 2023-07-25 10:23 | disposition short-term general hospital (02) ==
LOC: ER 03:21
DX: J44.1 Chronic obstructive pulmonary disease with (acute) exacerbation (principal); E11.9 Type 2 diabetes mellitus without complications; I10 Essential (primary) hypertension; Z79.899 Other long term (current) drug therapy
CPT/HCPCS: 80053; 83880; 85025; 85610; 84484; 36415; 71045; 94640; 93005; 96374; 99285; Z7610 ×4; J2930

== ENCOUNTER 2023-09-20 15:36 | Inpatient (IN) | payer MEDICAID ==
[~2023-09-20] VITALS: Ht 327.7 cm; Wt 42.2 kg
[~2023-09-20 15:36] MED LIST changes: +APIX2.5T MT; -DICL100G58 TP; -LORA10TA7 MT; +P20 MT
[2023-09-20] MEDS ORDERED: MAGNESIUM/ALUMINUM HYDROXIDE/SIMETHICONE 30ML UDC PO STA (15:55)
[2023-09-20] MEDS ORDERED: IPRATROPIUM BROMIDE (0.02%) 0.5MG/2.5ML NEB HHN STA (15:55)
[2023-09-20] MEDS ORDERED: FAMOTIDINE 20MG/2ML VIAL IV STA (15:55)
[2023-09-20] MEDS ORDERED: METHYLPREDNISOLONE SOD SUCC 125MG/2ML (ACT-O-VIAL) IV STA (15:55)
[2023-09-20 16:53] LABS: BASOPHILS % 0.4 % (0.0-2.0); EOSINOPHILS % 5.3 % (0.0-5.0); HEMATOCRIT. 35.4 % (42.0-52.0); HEMOGLOBIN. 11.8 g/dL (14.0-18.0); LYMPHOCYTES % 13.1 % (20.0-50.0); MEAN CORPUSCULAR HEMOGLOBIN 31.9 pg (28.0-32.0); MEAN CORPUSCULAR HGB CONC 33.3 g/dL (31.0-37.0); MEAN CORPUSCULAR VOLUME 95.9 fL (80.0-94.0); MEAN PLATELET VOLUME 8.7 fl (7.4-10.4); MONOCYTES % 10.2 % (2.0-8.0); PLATELET 225 x1000/uL (130-400); RED CELL DISTRIBUTION WIDTH 15.1 % (11.6-14.6); WHITE BLOOD COUNT 8.3 x1000/uL (4.5-11.0)
[2023-09-20] MEDS: ALBUTEROL (0.083%) 2.5MG/3ML NEB HHN SCH (16:56)
[2023-09-20 17:00] VITALS: PULSE 81; RESP 20; O2SAT 100
[2023-09-20 17:09] LABS: ALANINE AMINOTRANSFERASE 10 IU/L (10-49); ALBUMIN 3.8 g/dL (3.2-4.8); ASPARTATE AMINOTRANSFERASE 22 IU/L (<34); BILIRUBIN TOTAL 0.2 mg/dL (0.1-1.0); CALCIUM 8.7 mg/dL (8.7-10.4); CARBON DIOXIDE 30 mEq/L (21-32); CHLORIDE 100 mEq/L (98-107); CREATININE 0.7 mg/dL (0.6-1.3); GLUCOSE 91 mg/dL (70-105); POTASSIUM 5.8 mEq/L (3.5-5.1); PROTEIN TOTAL 7.3 g/dL (6.0-8.3); SODIUM 138 mEq/L (136-145); TROPONIN I HIGH SENSITIVITY 24 ng/L (3.0-53); UREA NITROGEN BLOOD 19 mg/dL (9-23)
[2023-09-20 17:30] VITALS: PULSE 86; RESP 20; O2SAT 99
[2023-09-20 18:00] VITALS: PULSE 86; RESP 20; O2SAT 99
[2023-09-20] MEDS ORDERED: DEXTROSE 50% WATER 50ML SYRINGE IV ONE (18:30)
[2023-09-20] MEDS ORDERED: CEFTRIAXONE 1GM PREMIX 50 ML IV ONE (18:30)
[2023-09-20] MEDS ORDERED: AZITHROMYCIN 500MG/250ML 250 ML IV ONE (18:30)
[2023-09-20] MEDS ORDERED: SODIUM BICARBONATE 8.4% 1 MEQ/ML 50ML SYR IV ONE (18:30)
[2023-09-20] MEDS ORDERED: INSULIN REGULAR (HUMULIN R) 300UNITS/3ML VIAL IV ONE (18:30)
[2023-09-20] MEDS ORDERED: CEFTRIAXONE 1GM PREMIX 50 ML IV NR (20:22)
[2023-09-20 21:15] LABS: INR 0.9; PROTHROMBIN TIME 10.2 sec (9.6-11.0)
[2023-09-20] MEDS ORDERED: AZITHROMYCIN 500MG/250ML IV NR (21:30)
[2023-09-20 23:00] VITALS: BP 105/62; PULSE 78; RESP 18; TEMP 97.7
[2023-09-21] VITALS (7 sets, daily range): BP systolic 112–136; BP diastolic 44–63; PULSE 68–74; RESP 17–20; TEMP 97.7–98.7; O2SAT 98–100
[2023-09-21 04:45] LABS: BASOPHILS % 0.2 % (0.0-2.0); EOSINOPHILS % 0.6 % (0.0-5.0); HEMATOCRIT. 29.3 % (42.0-52.0); HEMOGLOBIN. 9.7 g/dL (14.0-18.0); LYMPHOCYTES % 10.7 % (20.0-50.0); MEAN CORPUSCULAR HEMOGLOBIN 31.5 pg (28.0-32.0); MEAN CORPUSCULAR HGB CONC 33.2 g/dL (31.0-37.0); MEAN CORPUSCULAR VOLUME 95.1 fL (80.0-94.0); MEAN PLATELET VOLUME 8.6 fl (7.4-10.4); MONOCYTES % 7.2 % (2.0-8.0); NEUTROPHILS % 81.3 % (40.0-76.0); PLATELET 192 x1000/uL (130-400); RED BLOOD CELL COUNT 3.08 mill/uL (4.7-6.1); RED CELL DISTRIBUTION WIDTH 14.9 % (11.6-14.6)
[2023-09-21 05:09] LABS: ALANINE AMINOTRANSFERASE < 7 IU/L (10-49); ALBUMIN 3.4 g/dL (3.2-4.8); ASPARTATE AMINOTRANSFERASE 13 IU/L (<34); BILIRUBIN TOTAL 0.2 mg/dL (0.1-1.0); CALCIUM 8.5 mg/dL (8.7-10.4); CARBON DIOXIDE 32 mEq/L (21-32); CHLORIDE 100 mEq/L (98-107); CHOLESTEROL 239 mg/dL (<200); CREATININE 0.7 mg/dL (0.6-1.3); GLUCOSE 182 mg/dL (70-105); HDL CHOLESTEROL 57 mg/dL (>55); LDL CHOLESTEROL 155 mg/dL (5-100); POTASSIUM 4.3 mEq/L (3.5-5.1); PROTEIN TOTAL 6.2 g/dL (6.0-8.3); SODIUM 138 mEq/L (136-145); TRIGLYCERIDE 62 mg/dL (0-150); UREA NITROGEN BLOOD 15 mg/dL (9-23)
[2023-09-21] MEDS: METHYLPREDNISOLONE SOD SUCC 40MG/ML (ACT-O-VIAL) IV SCH ×3 (05:47→22:07)
[2023-09-21] MEDS: PANTOPRAZOLE 40MG DR TABLET PO SCH (08:16)
[2023-09-21] MEDS: APIXABAN 2.5 MG TABLET PO SCH ×2 (08:16→17:42)
[2023-09-21] MEDS: LEVETIRACETAM 500MG TABLET PO SCH ×2 (08:16→20:16)
[2023-09-21] MEDS ORDERED: PANTOPRAZOLE 40MG DR TABLET PO SCH (09:00)
[2023-09-21] MEDS: BUDESONIDE 0.5MG/2ML NEB HHN SCH ×2 (09:53→20:11)
[2023-09-21] MEDS: IPRATROPIUM/ALBUTEROL 0.5-3(2.5)MG/3ML NEB HHN PRN ×2 (12:17→20:11)
[2023-09-21] MEDS: FUROSEMIDE 40MG/4ML VIAL IVP SCH (14:34)
[2023-09-21] MEDS: MONTELUKAST SODIUM 10MG TABLET PO SCH (17:42)
[2023-09-21] MEDS: CEFTRIAXONE 1GM PREMIX 50 ML IV SCH (20:16)
[2023-09-21] MEDS: AZITHROMYCIN 500MG/250ML 250 ML IV SCH (22:05)
[2023-09-22] VITALS (9 sets, daily range): BP systolic 113–134; BP diastolic 53–70; PULSE 64–83; RESP 14–19; TEMP 97.2–98.2; O2SAT 98–99
[2023-09-22] MEDS: METHYLPREDNISOLONE SOD SUCC 40MG/ML (ACT-O-VIAL) IV SCH ×3 (06:51→22:33)
[2023-09-22] MEDS ORDERED: MAGNESIUM HYDROXIDE 400MG/5ML 30ML UDC PO PRN (07:15)
[2023-09-22] MEDS ORDERED: HYDROCODONE/ACETAMINOPHEN 5/325MG TABLET PO PRN (07:15)
[2023-09-22] MEDS ORDERED: NALOXONE HCL 0.4MG/ML VIAL IV PRN (07:30)
[2023-09-22] MEDS: BUDESONIDE 0.5MG/2ML NEB HHN SCH (09:12)
[2023-09-22] MEDS: PANTOPRAZOLE 40MG DR TABLET PO SCH (09:25)
[2023-09-22] MEDS: FUROSEMIDE 40MG/4ML VIAL IVP SCH (09:25)
[2023-09-22] MEDS: LEVETIRACETAM 500MG TABLET PO SCH ×2 (09:25→20:02)
[2023-09-22] MEDS: APIXABAN 2.5 MG TABLET PO SCH ×2 (09:25→17:36)
[2023-09-22 09:40] LABS: CLARITY URINE CLEAR (CLEAR); COLOR URINE YELLOW (YELLOW); GLUCOSE URINE NEGATIVE (NEGATIVE); KETONES URINE NEGATIVE (NEGATIVE); LEUKOCYTE ESTERASE URINE NEGATIVE (NEGATIVE); NITRITE URINE NEGATIVE (NEGATIVE); OCCULT BLOOD URINE NEGATIVE (NEGATIVE); PROTEIN URINE NEGATIVE (NEGATIVE); SPECIFIC GRAVITY URINE 1.009 (1.005-1.030); UROBILINOGEN URINE 0.2 E.U./dL (0.2-1.0)
[2023-09-22] MEDS ORDERED: DEXTROSE 50% WATER 50ML SYRINGE IV PRN ×2 (16:30)
[2023-09-22] MEDS: BLOOD SUGAR DIAGNOSTIC STRIP TEST SCH ×2 (16:50→20:16)
[2023-09-22] MEDS: INSULIN LISPRO 100 UNITS/ML SUBCUT SCH ×2 (17:20→22:33)
[2023-09-22] MEDS: MONTELUKAST SODIUM 10MG TABLET PO SCH (17:36)
[2023-09-22 18:42] LABS: HEMATOCRIT 35.7 % (42.0-52.0); HEMOGLOBIN 11.6 g/dL (14.0-18.0)
[2023-09-22] MEDS: CEFTRIAXONE 1GM PREMIX 50 ML IV SCH (20:02)
[2023-09-22] MEDS: ACETAMINOPHEN 650MG/20.3ML UDC PO PRN (20:03)
[2023-09-22] MEDS: AZITHROMYCIN 500MG/250ML 250 ML IV SCH (22:42)
[2023-09-23] VITALS (7 sets, daily range): BP systolic 111–137; BP diastolic 47–86; PULSE 66–90; RESP 18–20; TEMP 97.8–98.6; O2SAT 96
[2023-09-23] MEDS: METHYLPREDNISOLONE SOD SUCC 40MG/ML (ACT-O-VIAL) IV SCH ×3 (05:54→22:33)
[2023-09-23] MEDS: BLOOD SUGAR DIAGNOSTIC STRIP TEST SCH (05:54)
[2023-09-23] MEDS: INSULIN LISPRO 100 UNITS/ML SUBCUT SCH (07:20)
[2023-09-23 08:00] LABS: BASOPHILS % 0.1 % (0.0-2.0); EOSINOPHILS % 0.7 % (0.0-5.0); HEMATOCRIT. 32.6 % (42.0-52.0); HEMOGLOBIN. 10.8 g/dL (14.0-18.0); LYMPHOCYTES % 13.2 % (20.0-50.0); MEAN CORPUSCULAR HEMOGLOBIN 31.5 pg (28.0-32.0); MEAN CORPUSCULAR HGB CONC 33.1 g/dL (31.0-37.0); MEAN CORPUSCULAR VOLUME 95.1 fL (80.0-94.0); MEAN PLATELET VOLUME 8.9 fl (7.4-10.4); MONOCYTES % 4.7 % (2.0-8.0); NEUTROPHILS % 81.3 % (40.0-76.0); PLATELET 279 x1000/uL (130-400); RED BLOOD CELL COUNT 3.43 mill/uL (4.7-6.1); RED CELL DISTRIBUTION WIDTH 14.6 % (11.6-14.6)
[2023-09-23 08:19] LABS: CALCIUM 9.3 mg/dL (8.7-10.4); CARBON DIOXIDE 35 mEq/L (21-32); CHLORIDE 96 mEq/L (98-107); CREATININE 0.7 mg/dL (0.6-1.3); GLUCOSE 98 mg/dL (70-105); POTASSIUM 4.4 mEq/L (3.5-5.1); SODIUM 136 mEq/L (136-145); UREA NITROGEN BLOOD 23 mg/dL (9-23)
[2023-09-23] MEDS: PANTOPRAZOLE 40MG DR TABLET PO SCH ×2 (08:20→17:59)
[2023-09-23] MEDS: LEVETIRACETAM 500MG TABLET PO SCH ×2 (08:20→19:58)
[2023-09-23] MEDS: FUROSEMIDE 40MG/4ML VIAL IVP SCH (08:20)
[2023-09-23] MEDS: APIXABAN 2.5 MG TABLET PO SCH ×2 (08:21→17:59)
[2023-09-23] MEDS ORDERED: SODIUM POLYSTYRENE SULFONATE 15 G/60 ML BOT PO NR (09:45)
[2023-09-23] MEDS: BUDESONIDE 0.5MG/2ML NEB HHN SCH ×2 (10:19→20:43)
[2023-09-23] MEDS: IPRATROPIUM/ALBUTEROL 0.5-3(2.5)MG/3ML NEB HHN PRN ×2 (10:19→20:43)
[2023-09-23] MEDS ORDERED: SUCRALFATE 1 G/10 ML UDC PO SCH (16:50)
[2023-09-23] MEDS: MONTELUKAST SODIUM 10MG TABLET PO SCH (17:59)
[2023-09-23] MEDS: SUCRALFATE 1G TABLET PO SCH ×2 (17:59→21:12)
[2023-09-23] MEDS: CEFTRIAXONE 1GM PREMIX 50 ML IV SCH (19:58)
[2023-09-23] MEDS: AZITHROMYCIN 500MG/250ML 250 ML IV SCH (21:12)
[2023-09-24] VITALS (7 sets, daily range): BP systolic 113–127; BP diastolic 45–63; PULSE 65–78; RESP 16–20; TEMP 97–98.2; O2SAT 100
[2023-09-24] MEDS: METHYLPREDNISOLONE SOD SUCC 40MG/ML (ACT-O-VIAL) IV SCH ×3 (06:10→21:14)
[2023-09-24] MEDS: SUCRALFATE 1G TABLET PO SCH ×4 (06:10→21:14)
[2023-09-24 07:50] LABS: BASOPHILS % 0.2 % (0.0-2.0); EOSINOPHILS % 0.3 % (0.0-5.0); HEMATOCRIT. 32.5 % (42.0-52.0); HEMOGLOBIN. 10.9 g/dL (14.0-18.0); LYMPHOCYTES % 13.3 % (20.0-50.0); MEAN CORPUSCULAR HEMOGLOBIN 31.4 pg (28.0-32.0); MEAN CORPUSCULAR HGB CONC 33.4 g/dL (31.0-37.0); MEAN PLATELET VOLUME 8.4 fl (7.4-10.4); MONOCYTES % 6.5 % (2.0-8.0); NEUTROPHILS % 79.7 % (40.0-76.0); PLATELET 273 x1000/uL (130-400); RED BLOOD CELL COUNT 3.46 mill/uL (4.7-6.1); RED CELL DISTRIBUTION WIDTH 14.8 % (11.6-14.6)
[2023-09-24 08:07] LABS: CARBON DIOXIDE 37 mEq/L (21-32); CHLORIDE 96 mEq/L (98-107); CREATININE 0.8 mg/dL (0.6-1.3); GLUCOSE 142 mg/dL (70-105); IRON 45 ug/dL (65-175); SODIUM 138 mEq/L (136-145); TOTAL IRON BINDING CAPACITY 238 ug/dl (250-425); UREA NITROGEN BLOOD 26 mg/dL (9-23)
[2023-09-24] MEDS: DOCUSATE SODIUM 100MG CAPSULE PO SCH (09:47)
[2023-09-24] MEDS: LEVETIRACETAM 500MG TABLET PO SCH ×2 (09:48→21:14)
[2023-09-24] MEDS: APIXABAN 2.5 MG TABLET PO SCH ×2 (09:48→16:49)
[2023-09-24] MEDS: PANTOPRAZOLE 40MG DR TABLET PO SCH ×2 (09:48→16:49)
[2023-09-24] MEDS: FUROSEMIDE 40MG TABLET PO SCH (09:48)
[2023-09-24] MEDS: BUDESONIDE 0.5MG/2ML NEB HHN SCH (10:23)
[2023-09-24] MEDS: IPRATROPIUM/ALBUTEROL 0.5-3(2.5)MG/3ML NEB HHN PRN (10:23)
[2023-09-24 11:14] LABS: FERRITIN 26 ng/mL (22-322); FOLIC ACID (FOLATE) SERUM 16.51 ng/mL (>5.38); VITAMIN B12 SERUM 220 pg/mL (211-911)
[2023-09-24] MEDS: MONTELUKAST SODIUM 10MG TABLET PO SCH (16:49)
[2023-09-24] MEDS: CEFTRIAXONE 1GM PREMIX 50 ML IV SCH (20:17)
[2023-09-24] MEDS: AZITHROMYCIN 500MG/250ML 250 ML IV SCH (21:48)
[2023-09-25] VITALS (7 sets, daily range): BP systolic 107–146; BP diastolic 44–67; PULSE 66–75; RESP 12–16; TEMP 98.2–98.9; O2SAT 98
[2023-09-25] MEDS: METHYLPREDNISOLONE SOD SUCC 40MG/ML (ACT-O-VIAL) IV SCH ×3 (05:46→21:02)
[2023-09-25] MEDS: SUCRALFATE 1G TABLET PO SCH ×4 (05:47→21:03)
[2023-09-25 06:39] LABS: BASOPHILS % 0.1 % (0.0-2.0); HEMATOCRIT. 33.2 % (42.0-52.0); HEMOGLOBIN. 11.2 g/dL (14.0-18.0); LYMPHOCYTES % 18.1 % (20.0-50.0); MEAN CORPUSCULAR HEMOGLOBIN 31.7 pg (28.0-32.0); MEAN CORPUSCULAR HGB CONC 33.7 g/dL (31.0-37.0); MEAN CORPUSCULAR VOLUME 93.9 fL (80.0-94.0); MEAN PLATELET VOLUME 8.1 fl (7.4-10.4); MONOCYTES % 8.5 % (2.0-8.0); NEUTROPHILS % 72.3 % (40.0-76.0); PLATELET 299 x1000/uL (130-400); RED BLOOD CELL COUNT 3.54 mill/uL (4.7-6.1); RED CELL DISTRIBUTION WIDTH 14.6 % (11.6-14.6); WHITE BLOOD COUNT 5.5 x1000/uL (4.5-11.0)
[2023-09-25 06:58] LABS: CALCIUM 9.3 mg/dL (8.7-10.4); CARBON DIOXIDE 39 mEq/L (21-32); CHLORIDE 95 mEq/L (98-107); CREATININE 0.7 mg/dL (0.6-1.3); GLUCOSE 87 mg/dL (70-105); POTASSIUM 4.1 mEq/L (3.5-5.1); SODIUM 139 mEq/L (136-145); UREA NITROGEN BLOOD 21 mg/dL (9-23)
[2023-09-25] MEDS: PANTOPRAZOLE 40MG DR TABLET PO SCH ×2 (09:16→17:05)
[2023-09-25] MEDS: LEVETIRACETAM 500MG TABLET PO SCH ×2 (09:16→21:03)
[2023-09-25] MEDS: FUROSEMIDE 40MG TABLET PO SCH (09:17)
[2023-09-25] MEDS: DOCUSATE SODIUM 100MG CAPSULE PO SCH (09:17)
[2023-09-25] MEDS: APIXABAN 2.5 MG TABLET PO SCH ×2 (09:18→17:05)
[2023-09-25] MEDS: ACETAMINOPHEN 650MG/20.3ML UDC PO PRN (12:30)
[2023-09-25] MEDS: IPRATROPIUM/ALBUTEROL 0.5-3(2.5)MG/3ML NEB HHN PRN (13:33)
[2023-09-25] MEDS: MONTELUKAST SODIUM 10MG TABLET PO SCH (17:05)
[2023-09-25] MEDS: LACTULOSE 20G/30ML UDC PO SCH ×2 (17:06→21:08)
[2023-09-25] MEDS: CYANOCOBALAMIN 1000MCG/ML VIAL IM SCH (19:37)
[2023-09-25] MEDS: CEFTRIAXONE 1GM PREMIX 50 ML IV SCH (19:38)
[2023-09-25] MEDS ORDERED: AZITHROMYCIN 500 MG TABLET PO SCH (21:00)
[2023-09-26] VITALS (9 sets, daily range): BP systolic 105–128; BP diastolic 46–69; PULSE 62–91; RESP 16–20; TEMP 97.5–98; O2SAT 98
[2023-09-26] MEDS: LACTULOSE 20G/30ML UDC PO SCH ×3 (05:51→21:27)
[2023-09-26] MEDS: METHYLPREDNISOLONE SOD SUCC 40MG/ML (ACT-O-VIAL) IV SCH ×3 (05:51→21:21)
[2023-09-26] MEDS: SUCRALFATE 1G TABLET PO SCH ×4 (06:01→21:21)
[2023-09-26 06:36] LABS: BASOPHILS % 0.1 % (0.0-2.0); EOSINOPHILS % 0.6 % (0.0-5.0); HEMATOCRIT. 33.2 % (42.0-52.0); HEMOGLOBIN. 11.2 g/dL (14.0-18.0); LYMPHOCYTES % 17.9 % (20.0-50.0); MEAN CORPUSCULAR HEMOGLOBIN 31.8 pg (28.0-32.0); MEAN CORPUSCULAR HGB CONC 33.9 g/dL (31.0-37.0); MEAN CORPUSCULAR VOLUME 93.8 fL (80.0-94.0); MEAN PLATELET VOLUME 8.2 fl (7.4-10.4); MONOCYTES % 7.6 % (2.0-8.0); NEUTROPHILS % 73.8 % (40.0-76.0); PLATELET 310 x1000/uL (130-400); RED BLOOD CELL COUNT 3.53 mill/uL (4.7-6.1); RED CELL DISTRIBUTION WIDTH 14.4 % (11.6-14.6); WHITE BLOOD COUNT 6.4 x1000/uL (4.5-11.0)
[2023-09-26 07:00] LABS: CALCIUM 9.3 mg/dL (8.7-10.4); CARBON DIOXIDE 37 mEq/L (21-32); CHLORIDE 95 mEq/L (98-107); CREATININE 0.8 mg/dL (0.6-1.3); GLUCOSE 97 mg/dL (70-105); POTASSIUM 4.1 mEq/L (3.5-5.1); SODIUM 138 mEq/L (136-145); UREA NITROGEN BLOOD 23 mg/dL (9-23)
[2023-09-26] MEDS: DOCUSATE SODIUM 100MG CAPSULE PO SCH (09:00)
[2023-09-26] MEDS: LEVETIRACETAM 500MG TABLET PO SCH ×2 (09:11→21:21)
[2023-09-26] MEDS: PANTOPRAZOLE 40MG DR TABLET PO SCH ×2 (09:11→17:05)
[2023-09-26] MEDS: APIXABAN 2.5 MG TABLET PO SCH (09:11)
[2023-09-26] MEDS: CYANOCOBALAMIN 1000MCG/ML VIAL IM SCH (09:11)
[2023-09-26] MEDS: FUROSEMIDE 40MG TABLET PO SCH (09:11)
[2023-09-26] MEDS ORDERED: KEPP500 PO (12:59)
[2023-09-26] MEDS ORDERED: PANT40TA51 PO (12:59)
[2023-09-26] MEDS ORDERED: FURO40TA5 PO (12:59)
[2023-09-26] MEDS ORDERED: SUCR1TAB30 PO (12:59)
[2023-09-26] MEDS: MONTELUKAST SODIUM 10MG TABLET PO SCH (17:05)
[2023-09-26] MEDS: IPRATROPIUM/ALBUTEROL 0.5-3(2.5)MG/3ML NEB HHN PRN ×2 (18:19→22:47)
[2023-09-27] VITALS: BP 134/57; PULSE 71; RESP 16; TEMP 97.9
[2023-09-27 04:00] VITALS: BP 116/72; PULSE 76; RESP 18; TEMP 97.7
[2023-09-27] MEDS: LACTULOSE 20G/30ML UDC PO SCH ×2 (06:00→13:05)
[2023-09-27] MEDS: SUCRALFATE 1G TABLET PO SCH ×3 (06:03→16:05)
[2023-09-27] MEDS: METHYLPREDNISOLONE SOD SUCC 40MG/ML (ACT-O-VIAL) IV SCH ×2 (06:03→13:11)
[2023-09-27 06:38] VITALS: PULSE 74; RESP 16
[2023-09-27] MEDS: IPRATROPIUM/ALBUTEROL 0.5-3(2.5)MG/3ML NEB HHN PRN (06:38)
[2023-09-27 06:43] LABS: BASOPHILS % 0.3 % (0.0-2.0); EOSINOPHILS % 0.6 % (0.0-5.0); HEMATOCRIT. 33.4 % (42.0-52.0); HEMOGLOBIN. 11.2 g/dL (14.0-18.0); LYMPHOCYTES % 14.2 % (20.0-50.0); MEAN CORPUSCULAR HEMOGLOBIN 31.4 pg (28.0-32.0); MEAN CORPUSCULAR HGB CONC 33.5 g/dL (31.0-37.0); MEAN CORPUSCULAR VOLUME 93.7 fL (80.0-94.0); MEAN PLATELET VOLUME 8.3 fl (7.4-10.4); NEUTROPHILS % 79.9 % (40.0-76.0); PLATELET 324 x1000/uL (130-400); RED BLOOD CELL COUNT 3.56 mill/uL (4.7-6.1); RED CELL DISTRIBUTION WIDTH 14.6 % (11.6-14.6); WHITE BLOOD COUNT 6.9 x1000/uL (4.5-11.0)
[2023-09-27 07:06] LABS: CALCIUM 9.3 mg/dL (8.7-10.4); CARBON DIOXIDE 39 mEq/L (21-32); CHLORIDE 94 mEq/L (98-107); CREATININE 0.9 mg/dL (0.6-1.3); GLUCOSE 156 mg/dL (70-105); POTASSIUM 3.6 mEq/L (3.5-5.1); SODIUM 137 mEq/L (136-145); UREA NITROGEN BLOOD 26 mg/dL (9-23)
[2023-09-27 08:00] VITALS: BP 114/58; PULSE 77; RESP 20; TEMP 97.9
[2023-09-27] MEDS: FUROSEMIDE 40MG TABLET PO SCH (09:02)
[2023-09-27] MEDS: LEVETIRACETAM 500MG TABLET PO SCH (09:02)
[2023-09-27] MEDS: DOCUSATE SODIUM 100MG CAPSULE PO SCH (09:02)
[2023-09-27] MEDS: PANTOPRAZOLE 40MG DR TABLET PO SCH ×2 (09:02→16:05)
[2023-09-27] MEDS: CYANOCOBALAMIN 1000MCG/ML VIAL IM SCH (09:03)
[2023-09-27 12:00] VITALS: BP 114/52; PULSE 76; RESP 19; TEMP 98.2
[2023-09-27 16:00] VITALS: BP 113/53; PULSE 67; RESP 17; TEMP 98
[2023-09-27] MEDS: MONTELUKAST SODIUM 10MG TABLET PO SCH (16:05)
== END 2023-09-27 19:45 | disposition hospice, home (50) | DRG 140 ==
LOC: ER 15:36 → 3WST 20:20 → EDBEDREQTM 20:37 → EDBEDREQ 20:37
PROVIDERS: ADMIT Internal Medicine; ATTEND Internal Medicine
DX: J44.1 Chronic obstructive pulmonary disease with (acute) exacerbation (principal); J96.21 Acute and chronic respiratory failure with hypoxia; I50.23 Acute on chronic systolic (congestive) heart failure; I27.81 Cor pulmonale (chronic); I48.92 Unspecified atrial flutter; K26.9 Duodenal ulcer, unspecified as acute or chronic, without hemorrhage or perforation; G40.909 Epilepsy, unspecified, not intractable, without status epilepticus; I48.0 Paroxysmal atrial fibrillation; I11.0 Hypertensive heart disease with heart failure; J96.22 Acute and chronic respiratory failure with hypercapnia; K21.9 Gastro-esophageal reflux disease without esophagitis; D64.9 Anemia, unspecified; E78.5 Hyperlipidemia, unspecified; F17.210 Nicotine dependence, cigarettes, uncomplicated; K25.7 Chronic gastric ulcer without hemorrhage or perforation; I25.10 Atherosclerotic heart disease of native coronary artery without angina pectoris; K59.00 Constipation, unspecified; E53.8 Deficiency of other specified B group vitamins; Z99.81 Dependence on supplemental oxygen; Z86.15 Personal history of latent tuberculosis infection; Z83.3 Family history of diabetes mellitus; Z82.49 Family history of ischemic heart disease and other diseases of the circulatory system; Z79.01 Long term (current) use of anticoagulants; Z22.7 Latent tuberculosis; Z51.5 Encounter for palliative care
CPT/HCPCS: 36415; 71045; 74176; 80048; 80053; 80061; 81003; 82607; 82728; 82746; 82962; 83036; 83540; 83550; 83605; 83880; 84145; 84484; 85014; 85018; 85025; 85044; 93005; 93308; 94640; 97162; 99291; C1893; J0456; J0696; J1815; J1940; J2920; J2930; J3420; J3490; J7626